=== PATIENT | male | born 1995 | race Asian ===

== ENCOUNTER 2022-07-28 22:51 | Inpatient (IN) ==
--- NOTE | 2022-07-28 23:12 | Emergency Department Note ---
Impression & Plan Chest pain ED Provider Note INFORMANT: Patient ED PROVIDER(S): Al Romano DO CHIEF COMPLAINT: Chest pain PLAN: Disposition: Admission Outpatient prescription management: none Discussion with: I spoke with the hospitalist, who will see the patient for admission/observation and further evaluation and consultation. MEDICAL DECISION MAKING: This is a 26-year-old male who presents to the ED with a chief complaint of chest pain. He states that it has been present for about 6 hours. He describes it as a burning sensation like as if it is a gastric issue. Denies any associated shortness of breath, fevers, cough. He also reports some epigastric abdominal pain. His symptoms are worse with laying flat. His vital signs reveal tachycardia and hypertension. Oxygen saturation 98% on room air. He is afebrile. Lung sounds are diminished on the left compared to the right. CBC did not show significant leukocytosis or anemia. D-dimer was negative therefore blood clot is unlikely. Chemistry panel was unremarkable for electrolyte abnormality. Troponin was negative for myocarditis or myocardial ischemia. Lipase was negative for pancreatitis. The patient will be seen by the hospitalist for further evaluation and care. Triage Nursing notes reviewed. Vital Signs: reviewed Prior /Outside records reviewed: none Differential diagnosis: Pneumothorax, myocarditis, myocardial infarction, gastroenteritis, pancreatitis Diagnostics, as interpreted by me: 12 lead ECG: Sinus tach 113. No ST elevation. No PVCs. Normal QTc. Cardiac Monitoring ordered: Sinus rhythm in the 90s. Medical decision rules: none Imaging studies: Chest x-ray: Large left-sided pneumothorax, chest x-ray #2: Chest tube in place with no obvious pneumothorax, CT scan of the chest: Chest tube in place no significant pneumothorax. Procedures: Chest tube left thorax: A Thora vent chest tube was placed left thoracic cavity. Betadine prep. Sterile technique. Sterile drape. 1% lidocaine with epinephrine, 15 cc. Thora vent was placed in the standard fashion. Patient tolerated well. Resolution of pneumothorax on chest x-ray #2 Critical care: I have personally spent 30 minutes of critical care time in the direct management of this patient. This includes bedside care, interpretation of diagnostic studies, and testing, discussion with consultants, patient, and family members, and other required patient management activities. This 30 minutes is in excess of all separately billable procedures. HPI: See MDM above. PAST MEDICAL HISTORY: See Below PAST SURGICAL HISTORY: See Below SOCIAL HISTORY: See Below HOME MEDICATIONS: See Below ALLERGIES: See Below VITALS: See Below PHYSICAL EXAMINATION: See MDM for positive findings otherwise unremarkable. CONSTITUTIONAL/VITAL SIGNS: Reviewed GENERAL:done as appropriate INTEGUMENTARY: done as appropriate HEAD: done as appropriate EYES: done as appropriate RESPIRATORY: done as appropriate CARDIOVASCULAR:done as appropriate GI/ABDOMEN:done as appropriate EXTREMITIES: done as appropriate NEUROLOGICAL: done as appropriate PSYCHIATRIC:done as appropriate MUSCULOSKELETAL:done as appropriate TRIAGE NURSING DOCUMENTATION REVIEWED. Past Med/Surg History Social History Smoking Status: Never smoker Feels Safe at Home: Yes Allergies Allergies Allergy/AdvReac Type Severity Reaction Status Date / Time No Known Allergies Allergy Verified 07/28/22 23:17 Home Meds Home Medications Medication Instructions Recorded Confirmed rosuvastatin 10 mg tablet 10 mg PO DAILY 07/29/22 07/29/22 Results & Data (ED) Vital Signs Vital Signs - 24 hr 07/28/22 22:56 07/28/22 22:59 07/28/22 23:05 Temperature 36.7 C Temperature Source Oral Pulse Rate 114 H 96 H Pulse Rate [Finger] 110 H Respiratory Rate 20 20 Respiratory Effort / Characteristics Non-Labored Spontaneous Respiratory Depth Normal Normal Blood Pressure 141/98 H Blood Pressure [Right Arm] 141/98 H Blood Pressure Mean 112 Blood Pressure Mean [Right Arm] 112 Blood Pressure Position Sitting Pulse Oximetry 96 98 Oxygen Delivery Method Room Air Room Air Sepsis Recent Fever Within 48 Hours No Sepsis New/Unexplained Change in Mental Status N/A Sepsis Action Taken by Nursing No Action Required 07/28/22 23:05 Temperature Temperature Source Pulse Rate Pulse Rate [Finger] Respiratory Rate Respiratory Effort / Characteristics Respiratory Depth Blood Pressure Blood Pressure [Right Arm] Blood Pressure Mean Blood Pressure Mean [Right Arm] Blood Pressure Position Pulse Oximetry 98 Oxygen Delivery Method Room Air Sepsis Recent Fever Within 48 Hours Sepsis New/Unexplained Change in Mental Status Sepsis Action Taken by Nursing Laboratory Data 07/28/22 23:05 07/28/22 23:05 Lab Results 07/28/22 07/28/22 07/28/22 Range/Units 23:05 23:05 23:05 WBC 11.19 H (4.8-10.8) K/ul RBC 5.38 (4.70-6.10) M/uL Hgb 14.9 (14.0-18.0) g/dl Hct 43.6 (42.0-52.0) % MCV 81.0 (80.0-100.0) fL MCH 27.7 (25.0-34.0) pg MCHC 34.2 (32.0-36.0) g/dL RDW Std Deviation 36.5 (36.4-46.3) fL RDW Coeff of Xiang 12.4 (11.5-14.5) % Plt Count 195 (130-400) K/uL MPV 13.0 H (9.4-12.4) fL Immature Gran % (Auto) 0.4 % Neut % (Auto) 76.0 % Lymph % (Auto) 17.2 % [place] % (Auto) 5.6 % Eos % (Auto) 0.5 % Baso % (Auto) 0.3 % Neut # (Auto) 8.51 H (1.40-6.50) K/uL Lymph # (Auto) 1.92 (1.2-3.4) K/uL [place] # (Auto) 0.63 H (0.11-0.59) K/uL Eos # (Auto) 0.06 (0-0.50) K/uL Baso # (Auto) 0.03 (0-0.2) K/uL Immature Gran # (Auto) 0.04 (0.01-0.20) K/uL PT 10.3 (9.0-12.0) Seconds INR 1.0 (0.9-1.1) APTT 28.5 (21.0-31.0) Seconds PTT Ratio 1.0 D-Dimer 190 (0-500) ug/L FEU Sodium 130 L (136-145) mmol/L Potassium 3.6 (3.5-5.1) mmol/L Chloride 93 L (98-107) mmol/L Carbon Dioxide 29 (21-32) mmol/L Anion Gap 8 (3-11) BUN 9 (6-23) mg/dl Creatinine 0.98 (0.6-1.4) mg/dl Est Cr Clr Drug Dosing 98.8 ml/min Est GFR ( Amer) 124.6 ml/min Est GFR (Non-Af Amer) 107.5 ml/min BUN/Creatinine Ratio 9.2 L (10-20) Glucose 112 H (70-99(Fasting)) mg/dl Calcium 10.0 (8.5-10.1) mg/dl Total Bilirubin 0.7 (0.2-1.0) mg/dl AST 25 (13-39) U/L ALT 33 (7-52) U/L Alkaline Phosphatase 78 (34-104) U/L Troponin I High Sens 4.0 (0-20) pg/ml Total Protein 8.8 H (6.0-8.3) gm/dl Albumin 5.0 (3.4-5.0) gm/dl Globulin 3.8 (2.5-4.0) gm/dl Albumin/Globulin Ratio 1.3 (0.9-2) Lipase 20 (11-82) U/L Administered Medications Discontinued Medications Lidocaine HCl (Lidocaine 1% Local 20 Ml Vial) Confirm Administered Dose 1 ml .ROUTE .STK-MED ONE Stop: 07/28/22 23:36 Last Admin: 07/28/22 23:53 Dose: 1 ml Documented By: ERIKA Morphine Sulfate (Morphine Sulfate 4 Mg/Ml 1 Ml Carp\Vial) 4 mg IV NOW STA Stop: 07/28/22 23:23 Last Admin: 07/28/22 23:24 Dose: 4 mg Documented By: KITTY Morphine Sulfate (Morphine Sulfate 4 Mg/Ml 1 Ml Carp\Vial) Confirm Administered Dose 4 mg .ROUTE .STK-MED ONE Stop: 07/28/22 23:24 Last Admin: 07/28/22 23:24 Dose: Not Given Documented By: KITTY Morphine Sulfate (Morphine Sulfate 4 Mg/Ml 1 Ml Carp\Vial) 4 mg IV NOW STA Stop: 07/28/22 23:56 Last Admin: 07/28/22 23:59 Dose: 4 mg Documented By: DOMO Discharge Plan Visit Data Chief Complaint: Cardiac Assessment Stated Complaint: Chest Discomfort, Nausea ED Provider: Al Romano Discharge Problem: Chest pain Forms Stand Alone Forms: My [employer] Prescriptions Prescriptions: No Action rosuvastatin 10 mg tablet 10 mg PO DAILY Referrals Referrals: PCP,NO [Physician] -
[2022-07-28 23:22] LABS: Basophils # (auto) 0.03 K/uL (0-0.2); Basophils % (auto) 0.3 %; Eosinophils # (auto) 0.06 K/uL (0-0.50); Eosinophils % (auto) 0.5 %; Hematocrit (blood only) 43.6 % (42.0-52.0); Hemoglobin 14.9 g/dl (14.0-18.0); Immature Granulocytes # (auto) 0.04 K/uL (0.01-0.20); Immature Granulocytes % (auto) 0.4 %; Lymphocytes # (auto) 1.92 K/uL (1.2-3.4); Lymphocytes % (auto) 17.2 %; Mean Corpuscular Hemoglobin 27.7 pg (25.0-34.0); Mean Corpuscular Hgb Conc 34.2 g/dL (32.0-36.0); Monocytes # (auto) 0.63 K/uL (0.11-0.59); Monocytes % (auto) 5.6 %; Neutrophils # (auto) 8.51 K/uL (1.40-6.50); Platelet Count 195 K/uL (130-400); RDW Coefficient of Variation 12.4 % (11.5-14.5); RDW Standard Deviation 36.5 fL (36.4-46.3); Red Blood Count 5.38 M/uL (4.70-6.10); White Blood Count 11.19 K/ul (4.8-10.8)
[2022-07-28] MEDS ORDERED: MoRPHine SULFATE 4 MG/ML 1 ML CARP\\VIAL IV STA ×2 (23:22→23:55)
[2022-07-28] MEDS ORDERED: MoRPHine SULFATE 4 MG/ML 1 ML CARP\\VIAL ONE (23:23)
[2022-07-28] MEDS ORDERED: LIDOCAINE 1% LOCAL 20 ML VIAL ONE (23:35)
[2022-07-28 23:37] LABS: Albumin Globulin Ratio 1.3 (0.9-2); BUN Creatinine Ratio 9.2 (10-20); Bilirubin,Total 0.7 mg/dl (0.2-1.0); Creatinine Clr Calc Pharmacy 98.8 ml/min; Est GFR (African American) 124.6 ml/min; Est GFR (Non-African American) 107.5 ml/min; Globulin 3.8 gm/dl (2.5-4.0); Potassium 3.6 mmol/L (3.5-5.1); Total Protein 8.8 gm/dl (6.0-8.3)
[2022-07-29 00:05] LABS: D Dimer 190 ug/L FEU (0-500); Partial Thromboplastin Time 28.5 Seconds (21.0-31.0); Prothrombin Time 10.3 Seconds (9.0-12.0)
--- NOTE | 2022-07-29 01:12 | XRay Report ---
Exam(s): FILM CXR 1 VIEW EXAM: XR Chest, 1 View CLINICAL HISTORY: Reason for exam: Chest pain, nonspecific. TECHNIQUE: Frontal view of the chest. COMPARISON: Subsequent chest x-ray and chest CT after left-sided chest tube placement available for comparison FINDINGS: Lungs: Collapsed left lung. Pleural space: Large left pneumothorax. Mediastinal shift to the right and lower left hemidiaphragm. Heart: Unremarkable. No cardiomegaly. Mediastinum: See above. Bones/joints: Unremarkable. IMPRESSION: 1. Large left pneumothorax. Mediastinal shift to the right and lower left hemidiaphragm. Worrisome for tension pneumothorax. Subsequent chest x-ray and chest CT status post left chest tube placement and decreased pneumothorax available for comparison at the time of interpretation. 2. Collapsed left lung. Electronically signed by: Adriano Campuzano M.D. 07/29/22 01:10 AM
--- NOTE | 2022-07-29 01:20 | CT Scan Report ---
Exam(s): CT CHEST Without Contrast EXAM: CT Chest Without Intravenous Contrast CLINICAL HISTORY: Reason for exam: pneumothorax. TECHNIQUE: Axial computed tomography images of the chest without intravenous contrast. Automated exposure control was utilized for the study. A dose lowering technique was utilized adhering to the principles of ALARA. COMPARISON: Chest x-rays dated 07/28/22 at 2305 hrs and 2344 hrs FINDINGS: Lungs: Focal atelectasis/airspace disease in the left upper lobe, mostly around the catheter tract. Scattered linear left lung atelectasis. Mild groundglass opacities throughout the left lung. Pleural space: See below. Heart: Unremarkable. No cardiomegaly. No significant pericardial effusion. No significant coronary artery calcifications. Bones/joints: Unremarkable. No acute fracture. No dislocation. Soft tissues: Unremarkable. Vasculature: Unremarkable. No thoracic aortic aneurysm. Lymph nodes: Unremarkable. No enlarged lymph nodes. Tubes, lines and devices: Interval placement of a chest tube in the left upper thorax. Small residual left pneumothorax. IMPRESSION: 1. Interval placement of a chest tube in the left upper thorax. Small residual left pneumothorax. 2. Focal atelectasis/airspace disease in the left upper lobe, mostly around the catheter tract. Scattered linear left lung atelectasis. 3. Mild groundglass opacities throughout the left lung. May represent reexpansion edema or infectious/inflammatory process. Communications: Verify Receipt Electronically signed by: Adriano Campuzano M.D. 07/29/22 01:19 AM
[2022-07-29] MEDS ORDERED: HYDROCODONE/ACETAMOPHEN 5/325MG TAB PO PRN (01:24)
--- NOTE | 2022-07-29 01:25 | History & Physical Report ---
Date of Service July 29, 2022 Assessment & Plan (1) Spontaneous pneumothorax: Plan: Continue chest tube as placed in ED Consult pulmonology to follow patient in a.m. Acetaminophen 650 mg p.o. every 6 hours as needed for mild pain or fever [place] 5/325, 1 every 6 hours as needed for moderate pain Morphine sulfate 2 mg IV every 4 hours as needed for severe pain (2) Hyponatremia: Plan: Repeat laboratories in a.m. Hold on IV fluids at this time History of Present Illness Chief Complaint: The patient presents to the emergency department with complaint of initial gassy feeling, then epigastric discomfort, then a sharp left-sided chest pain about 6 hours prior to arrival Primary Care Provider: Rust The patient is a 26-year-old male with past medical history significant for hypercholesterolemia, who presents to the emergency department with symptoms as noted above. Significant laboratories: WBC 11.19, sodium 130, glucose 112, total protein 8.8. The patient is COVID-19 negative. First chest x-ray showed a large left-sided pneumothorax. Second chest x-ray showed resolution of left-sided pneumothorax with placement of chest tube Allergies Allergy/AdvReac Type Severity Reaction Status Date / Time No Known Allergies Allergy Verified 07/28/22 23:17 Home Medications Medication Instructions Recorded Confirmed Type rosuvastatin 10 mg tablet 10 mg PO DAILY 07/29/22 07/29/22 History Past Med/Surg History Social History Smoking Status: Never smoker Hx Alcohol Use: No Hx Substance Use: No Preferred Language: Latvian Communication Ability: Effective Hospice Superintendent Required: No Beliefs That Will Affect Care: None Current Living Situation: Other Current Living Situation Comment: [employer] student w/ roommate Other Information That Helps Us Care for You: No Feels Safe at Home: Yes Safety Concerns: Feels Safe At This Time Review of Systems Review of Systems: The patient denies palpitations, cough, lower extremity swelling, sore throat, fevers, chills, sweats, weight change, fatigue, nausea, vomiting, diarrhea , constipation, abdominal pain, pelvic pain, blood in urine or stool, dysuria, urinary frequency or urgency, lightheadedness, dizziness, headache, memory loss, loss of consciousness, rash, abnormal bruising or bleeding, imbalance, focal or generalized weakness, numbness or tingling in arms or legs, generalized arthralgias or myalgias, back or neck pain, or night sweats. The review of systems is otherwise negative other than for that already noted above, and at least 10 systems have been reviewed. Physical Exam Physical Exam: The patient is awake, alert and oriented 3, well developed and well nourished, normocephalic and atraumatic, lying in bed and in no acute distress. HEENT--PERRL, EOMI, mucous membranes and oropharynx normal. Neck--supple. No JVD. No bruits. Thyroid normal, trachea midline, no adenopathy. Heart--normal S1 and S2. No murmurs, rubs or gallops. Lungs--clear bilaterally, no respiratory distress, no accessory muscle use. Left-sided chest tube in place Abdomen--normal bowel sounds and soft. Nontender. Nondistended, no hernias or masses, no organomegaly. Extremities--no cyanosis or clubbing. No edema. Dermatologic--normal skin turgor, normal color, no abnormal lymph nodes, no rash. Neurologic--cranial nerves II through XII grossly intact. Rheumatologic--normal range of motion. Psychiatric--normal affect. Results & Data Results & Data ([facility]) Vital Signs (Past 12 Hours) Vital Signs Temp Pulse Pulse Resp BP BP Pulse Ox 07/29/22 00:53 101 H 23 138/98 97 07/28/22 23:05 98 07/28/22 23:05 110 H 20 141/98 H 98 07/28/22 22:59 36.7 C 96 H 20 141/98 H 96 07/28/22 22:56 114 H O2 Del Method 07/29/22 00:53 Room Air 07/28/22 23:05 Room Air 07/28/22 23:05 Room Air 07/28/22 22:59 Room Air 07/28/22 22:56 Laboratory Results Laboratory Results WBC 11.19 K/ul (4.8-10.8) H 07/28/22 23:05 RBC 5.38 M/uL (4.70-6.10) 07/28/22 23:05 Hgb 14.9 g/dl (14.0-18.0) 07/28/22 23:05 Hct 43.6 % (42.0-52.0) 07/28/22 23: MCV 81.0 fL (80.0-100.0) 07/28/22 23: MCH 27.7 pg (25.0-34.0) 07/28/22 23: MCHC 34.2 g/dL (32.0-36.0) 07/28/22 23: RDW Std Deviation 36.5 fL (36.4-46.3) 07/28/22 23: RDW Coeff of Xiang 12.4 % (11.5-14.5) 07/28/22 23: Plt Count 195 K/uL (130-400) 07/28/22 23: MPV 13.0 fL (9.4-12.4) H 07/28/22 23: Immature Gran % (Auto) 0.4 % 07/28/22 23: Neut % (Auto) 76.0 % 07/28/22 23: Lymph % (Auto) 17.2 % 07/28/22 23: [place] % (Auto) 5.6 % 07/28/22 23:05 Eos % (Auto) 0.5 % 07/28/22 23:05 Baso % (Auto) 0.3 % 07/28/22 23:05 Neut # (Auto) 8.51 K/uL (1.40-6.50) H 07/28/22 23:05 Lymph # (Auto) 1.92 K/uL (1.2-3.4) 07/28/22 23:05 [place] # (Auto) 0.63 K/uL (0.11-0.59) H 07/28/22 23:05 Eos # (Auto) 0.06 K/uL (0-0.50) 07/28/22 23:05 Baso # (Auto) 0.03 K/uL (0-0.2) 07/28/22 23:05 Immature Gran # (Auto) 0.04 K/uL (0.01-0.20) 07/28/22 23: PT 10.3 Seconds (9.0-12.0) 07/28/22 23:05 INR 1.0 (0.9-1.1) 07/28/22 23:05 APTT 28.5 Seconds (21.0-31.0) 07/28/22 23:05 PTT Ratio 1.0 07/28/22 23:05 D-Dimer 190 ug/L FEU (0-500) 07/28/22 23: Sodium 130 mmol/L (136-145) L 07/28/22 23:05 Potassium 3.6 mmol/L (3.5-5.1) 07/28/22 23: Chloride 93 mmol/L (98-107) L 07/28/22 23: Carbon Dioxide 29 mmol/L (21-32) 07/28/22 23: Anion Gap 8 (3-11) 07/28/22 23: BUN 9 mg/dl (6-23) 07/28/22 23: Creatinine 0.98 mg/dl (0.6-1.4) 07/28/22 23: Est Cr Clr Drug Dosing 98.8 ml/min 07/28/22 23:05 Est GFR ( Amer) 124.6 ml/min 07/28/22 23: Est GFR (Non-Af Amer) 107.5 ml/min 07/28/22 23:05 BUN/Creatinine Ratio 9.2 (10-20) L 07/28/22 23: Glucose 112 mg/dl (70-99(Fasting)) H 07/28/22 23: Calcium 10.0 mg/dl (8.5-10.1) 07/28/22 23: Total Bilirubin 0.7 mg/dl (0.2-1.0) 07/28/22 23: AST 25 U/L (13-39) 07/28/22 23: ALT 33 U/L (7-52) 07/28/22 23:05 Alkaline Phosphatase 78 U/L (34-104) 07/28/22 23:05 Troponin I High Sens 4.0 pg/ml (0-20) 07/28/22 23: Total Protein 8.8 gm/dl (6.0-8.3) H 07/28/22 23:05 Albumin 5.0 gm/dl (3.4-5.0) 07/28/22 23: Globulin 3.8 gm/dl (2.5-4.0) 07/28/22 23:05 Albumin/Globulin Ratio 1.3 (0.9-2) 07/28/22 23:05 Lipase 20 U/L (11-82) 07/28/22 23:05 SARS-CoV-2, RNA, NAAT NEGATIVE (NEGATIVE) 07/29/22 00:52 Impressions Chest X-Ray 07/28/22 23:50 Exam(s): FILM CXR 1 VIEW EXAM: XR Chest, 1 View CLINICAL HISTORY: Reason for exam: s/p chest tube. TECHNIQUE: Frontal view of the chest. COMPARISON: Chest x-ray dated 07/28/22 at [address] at 0036 hours. FINDINGS: Lungs: See below. Pleural space: See below. Heart: Unremarkable. No cardiomegaly. Mediastinum: Unremarkable. No mediastinal shift, resolved since the prior. Bones/joints: Unremarkable. Tubes, lines and devices: Interval placement of chest tube in the left upper thorax. Interval reexpansion of the left lung and resolution of the large left pneumothorax. Small residual pneumothorax on the chest CT not visualized on this study. IMPRESSION: Interval placement of chest tube in the left upper thorax. Interval reexpansion of the left lung and resolution of the large left pneumothorax. Small residual pneumothorax on the chest CT not visualized on this study. Electronically signed by: Adriano Campuzano M.D. 07/29/22 01:[address] 07/29/22 00:07 CR Exam(s): CT CHEST Without Contrast EXAM: CT Chest Without Intravenous Contrast CLINICAL HISTORY: Reason for exam: pneumothorax. TECHNIQUE: Axial computed tomography images of the chest without intravenous contrast. Automated exposure control was utilized for the study. A dose lowering technique was utilized adhering to the principles of ALARA. COMPARISON: Chest x-rays dated 07/28/22 at 2305 hrs and 2344 hrs FINDINGS: Lungs: Focal atelectasis/airspace disease in the left upper lobe, mostly around the catheter tract. Scattered linear left lung atelectasis. Mild groundglass opacities throughout the left lung. Pleural space: See below. Heart: Unremarkable. No cardiomegaly. No significant pericardial effusion. No significant coronary artery calcifications. Bones/joints: Unremarkable. No acute fracture. No dislocation. Soft tissues: Unremarkable. Vasculature: Unremarkable. No thoracic aortic aneurysm. Lymph nodes: Unremarkable. No enlarged lymph nodes. Tubes, lines and devices: Interval placement of a chest tube in the left upper thorax. Small residual left pneumothorax. IMPRESSION: 1. Interval placement of a chest tube in the left upper thorax. Small residual left pneumothorax. 2. Focal atelectasis/airspace disease in the left upper lobe, mostly around the catheter tract. Scattered linear left lung atelectasis. 3. Mild groundglass opacities throughout the left lung. May represent reexpansion edema or infectious/inflammatory process. Communications: Verify Receipt Electronically signed by: Adriano Campuzano M.D. 07/29/22 01:19 AM Code Status & VTE Plan Code Status Full code VTE Prophylaxis Plan VTE Prophylaxis will be ordered: Yes PG Care Time/CCT Total # of Minutes Spent Total Time Spent with Patient: Total time spent is greater than 50% in coordination of care (as documented) at patient's floor/unit and/or counseling patient: Coding Level of Care Code 08499 INT INP/OBS CARE 2/55MIN Diagnoses Spontaneous pneumothorax J93.83 Hyponatremia E87.1
[2022-07-29] MEDS ORDERED: MoRPHine SULFATE 2 MG/ML CARP IV PRN (01:32)
[2022-07-29] MEDS ORDERED: ACETAMINOPHEN 325 MG TAB PO PRN (02:19)
[2022-07-29] MEDS ORDERED: ONDANSETRON INJ 2 MG/ML 2 ML VIAL IV PRN (02:19)
--- NOTE | 2022-07-29 08:35 | Hospitalist Progress Note ---
Date of Service July 29, 2022 Assessment & Plan (1) Spontaneous pneumothorax: Plan: 26 y/o male w/ PMHx of HLD who presents with complaint of initial gassy feeling, then epigastric discomfort, then a sharp left-sided chest pain afternoon of 34. Continue chest tube as placed in ED Consult pulmonology to follow patient in a.m. Acetaminophen 650 mg p.o. every 6 hours as needed for mild pain or fever Tamms 5/325, 1 every 6 hours as needed for moderate pain Morphine sulfate 2 mg IV every 4 hours as needed for severe pain (2) Hyponatremia: Plan: Repeat laboratories in a.m. Hold on IV fluids at this time Plan FEN/GI: ppx: code: full dispo: med tele Admission and Anticipated Discharge Date Admission Date: July 29, 2022 Review of Systems Review of Systems: All systems reviewed & are unremarkable except as noted in HPI & below Physical Exam Physical Exam: General: Grossly A&O. NAD. Cooperative. HEENT: Atraumatic, normocephalic. EOMI Pulm: CTAB. -wheezes, -rales, -rhonchi. No respiratory distress. Cardiac: RRR, -mrg. Radial pulses intact and symmetrical. Abdominal: Nontender, nondistended, soft. Results & Data Results & Data ([facility]) Vital Signs (Past 12 Hours) Vital Signs Temp Pulse Pulse Resp BP BP Pulse Ox 07/29/22 07:54 07/29/22 07:51 36.7 C 97 H 20 121/79 96 07/29/22 05:59 80 07/29/22 02:54 78 07/29/22 02:52 36.7 C 86 16 132/87 97 07/29/22 02:20 07/29/22 02:20 07/29/22 01:30 89 130/81 95 07/29/22 00:45 101 H 24 138/98 98 07/28/22 23:30 118 H 24 124/88 96 07/28/22 23:00 112 H 27 H 141/98 H 97 07/29/22 00:53 101 H 23 138/98 97 07/28/22 23:05 98 07/28/22 23:05 110 H 20 141/98 H 98 07/28/22 22:59 36.7 C 96 H 20 141/98 H 96 07/28/22 22:56 114 H O2 Del Method 07/29/22 07:54 Room Air 07/29/22 07:51 Room Air 07/29/22 05:59 07/29/22 02:54 07/29/22 02:52 Room Air 07/29/22 02:20 Room Air 07/29/22 02:20 Room Air 07/29/22 01:30 Room Air 07/29/22 00:45 Room Air 07/28/22 23:30 Room Air 07/28/22 23:00 Room Air 07/29/22 00:53 Room Air 07/28/22 23:05 Room Air 07/28/22 23:05 Room Air 07/28/22 22:59 Room Air 07/28/22 22:56 Resident Activity Tracking Resident Involvement: Resident Care Provided Care Provided: Adult Hospital Medicine
[2022-07-29] MEDS ORDERED: ROSUVASTATIN CALCIUM 10 MG TAB PO SCH (09:00)
--- NOTE | 2022-07-29 09:17 | Pulmonary Consultation ---
Date of Consultation July 29, 2022 Assessment & Plan (1) Spontaneous pneumothorax: (2) Chest pain: Plan Impression: 26-year-old male with spontaneous pneumothorax. CT scan demonstrates no significant parenchymal lung disease and the lung appears reinflated with placement of a Thora vent. No air leak identified this morning. Recommendations: 1. Spontaneous pneumothorax: This is the patient's initial event. It appears to have resolved with placement of a Thora vent. The Thora vent will be discontinued today and the patient can be dismissed from the hospital. Follow- up chest x-ray with his primary care provider in 1 to 2 weeks is recommended. 2. Would recommend the patient not undergo any heavy physical activity or changes in barometric pressure (commercial flight or scuba diving) for the next 4 weeks. 3. There is some airspace opacity around the tube insertion site. Unclear if the tube is intraparenchymal at this point time but there is no air leak identified. 4. As this is his initial event, do not think additional extensive work-up is required. We will monitor the patient conservatively. If he has a second spontaneous event, pleurodesis may be recommended. Above recommendations and plan were discussed with the patient. Questions were answered to the best my ability. He expressed understanding and is in agreement with plan as outlined History of Present Illness Attending Physician: Wale Weir, History of Present Illness Asked by hospitalist to assist in evaluation management this patient with pneumothorax. History is obtained from discussion with the patient as well as review the electronic medical record. The patient is a 26-year-old male who presented to the emergency room early this morning complaints of epigastric discomfort and sharp left-sided chest pain. He may have had some coughing antecedent to this. No prior illness. No prior history of pneumothorax. The patient had a chest x-ray which revealed a large pneumothorax. A Thora vent was placed by the emergency room and the patient was admitted to the hospitalist service. This a.m. the patient complains of some mild chest pain at the site of the insertion of the Thora vent. He is not coughing. There is no air leak identified on the Pleur-evac. The patient is a non-smoker. He denies any inhalational exposures including e-cigarettes marijuana or vaping. No family history of structural lung disease that he is aware of. No prior history of asthma. Denies any skin lesions. No history of kidney tumors. Allergies Allergy/AdvReac Type Severity Reaction Status Date / Time No Known Allergies Allergy Verified 07/28/22 23:17 Home Medications Medication Instructions Recorded Confirmed Type rosuvastatin 10 mg tablet 10 mg PO DAILY 07/29/22 07/29/22 History Patient History Social History Smoking Status: Never smoker Hx Alcohol Use: No Hx Substance Use: No Preferred Language: Romansh Communication Ability: Effective Fisher Swordfish Required: No Beliefs That Will Affect Care: None Current Living Situation: Other Current Living Situation Comment: [employer] student w/ roommate Other Information That Helps Us Care for You: No Feels Safe at Home: Yes Safety Concerns: Feels Safe At This Time Review of Systems Review of Systems: All systems reviewed & are unremarkable except as noted in Subjective Physical Exam Constitutional: WD/WN, vitals as above Neck: trachea midline, no thyromegaly Respiratory: normal respiratory effort, lungs clear to auscultation Cardiovascular: RRR, no murmur, no edema Gastrointestinal (Abdomen): normal bowel sounds, soft, nontender, no hepatosplenomegaly Musculoskeletal: Extremities: extremities normal to inspection Skin: no rashes, warm and dry Neurologic: Nonfocal exam Lymphatic: no cervical lymphadenopathy Results & Data Results & Data ([facility]) Vital Signs (Past 12 Hours) Vital Signs Temp Pulse Pulse Resp BP BP Pulse Ox 07/29/22 07:54 07/29/22 07:51 36.7 C 97 H 20 121/79 96 07/29/22 05:59 80 07/29/22 02:54 78 07/29/22 02:52 36.7 C 86 16 132/87 97 07/29/22 02:20 07/29/22 02:20 07/29/22 01:30 89 130/81 95 07/29/22 00:45 101 H 24 138/98 98 07/28/22 23:30 118 H 24 124/88 96 07/28/22 23:00 112 H 27 H 141/98 H 97 07/29/22 00:53 101 H 23 138/98 97 07/28/22 23:05 98 07/28/22 23:05 110 H 20 141/98 H 98 07/28/22 22:59 36.7 C 96 H 20 141/98 H 96 07/28/22 22:56 114 H O2 Del Method 07/29/22 07:54 Room Air 07/29/22 07:51 Room Air 07/29/22 05:59 07/29/22 02:54 07/29/22 02:52 Room Air 07/29/22 02:20 Room Air 07/29/22 02:20 Room Air 07/29/22 01:30 Room Air 07/29/22 00:45 Room Air 07/28/22 23:30 Room Air 07/28/22 23:00 Room Air 07/29/22 00:53 Room Air 07/28/22 23:05 Room Air 07/28/22 23:05 Room Air 07/28/22 22:59 Room Air 07/28/22 22:56 Critical Care Results & Data Vital Signs (Past 12 Hours) Vital Signs Temp Pulse Pulse Resp BP BP Pulse Ox 07/29/22 07:54 07/29/22 07:51 36.7 C 97 H 20 121/79 96 07/29/22 05:59 80 07/29/22 02:54 78 07/29/22 02:52 36.7 C 86 16 132/87 97 07/29/22 02:20 07/29/22 02:20 07/29/22 01:30 89 130/81 95 07/29/22 00:45 101 H 24 138/98 98 07/28/22 23:30 118 H 24 124/88 96 07/28/22 23:00 112 H 27 H 141/98 H 97 07/29/22 00:53 101 H 23 138/98 97 07/28/22 23:05 98 07/28/22 23:05 110 H 20 141/98 H 98 07/28/22 22:59 36.7 C 96 H 20 141/98 H 96 07/28/22 22:56 114 H O2 Del Method 07/29/22 07:54 Room Air 07/29/22 07:51 Room Air 07/29/22 05:59 07/29/22 02:54 07/29/22 02:52 Room Air 07/29/22 02:20 Room Air 07/29/22 02:20 Room Air 07/29/22 01:30 Room Air 07/29/22 00:45 Room Air 07/28/22 23:30 Room Air 03/04/23 23:00 Room Air 07/29/22 00:53 Room Air 07/28/22 23:05 Room Air 07/28/22 23:05 Room Air 07/28/22 22:59 Room Air 07/28/22 22:56 Lab & Micro Results (Past 24 Hours) RBC 5.38 M/uL (4.70-6.10) 07/28/22 WBC 11.19 K/ul (4.8-10.8) H 07/28/22 Hgb 14.9 g/dl (14.0-18.0) 07/28/22 Hct 43.6 % (42.0-52.0) 07/28/22 MCV 81.0 fL (80.0-100.0) 07/28/22 MCH 27.7 pg (25.0-34.0) 07/28/22 MCHC 34.2 g/dL (32.0-36.0) 07/28/22 RDW Standard Deviation 36.5 fL (36.4-46.3) 07/28/22 RDW Coefficient of Variation 12.4 % (11.5-14.5) 07/28/22 Plt Count 195 K/uL (130-400) 07/28/22 MPV 13.0 fL (9.4-12.4) H 07/28/22 Neutrophils (%) (Auto) 76.0 % 07/28/22 Lymphocytes (%) (Auto) 17.2 % 07/28/22 Monocytes # (Auto) 0.63 K/uL (0.11-0.59) H 07/28/22 Eosinophils # (Auto) 0.06 K/uL (0-0.50) 07/28/22 Immature Granulocyte % (Auto) 0.4 % 07/28/22 Neutrophils # (Auto) 8.51 K/uL (1.40-6.50) H 07/28/22 Lymphocytes # (Auto) 1.92 K/uL (1.2-3.4) 07/28/22 Monocytes # (Auto) 0.63 K/uL (0.11-0.59) H 07/28/22 Eosinophils # (Auto) 0.06 K/uL (0-0.50) 07/28/22 Basophils # (Auto) 0.03 K/uL (0-0.2) 07/28/22 Immature Granulocyte # (Auto) 0.04 K/uL (0.01-0.20) 3 Na 130 mmol/L (136-145) L 07/28/22 K 3.6 mmol/L (3.5-5.1) 07/28/22 Cl 93 mmol/L (98-107) L 07/28/22 CO2 29 mmol/L (21-32) 07/28/22 Anion Gap 8 (3-11) 07/28/22 BUN 9 mg/dl (6-23) 07/28/22 Creatinine 0.98 mg/dl (0.6-1.4) 07/28/22 Estimated GFR ( Amer) 124.6 ml/min 07/28/22 Estimated GFR (Non-Af Amer) 107.5 ml/min 07/28/22 BUN/Creatinine Ratio 9.2 (10-20) L 07/28/22 Glu 112 mg/dl (70-99(Fasting)) H 07/28/22 Ca 10.0 mg/dl (8.5-10.1) 07/28/22 Total Bilirubin 0.7 mg/dl (0.2-1.0) 07/28/22 AST 25 U/L (13-39) 07/28/22 ALT 33 U/L (7-52) 07/28/22 Alkaline Phosphatase 78 U/L (34-104) 07/28/22 TP 8.8 gm/dl (6.0-8.3) H 07/28/22 Albumin 5.0 gm/dl (3.4-5.0) 07/28/22 Globulin 3.8 gm/dl (2.5-4.0) 07/28/22 Albumin/Globulin Ratio 1.3 (0.9-2) 07/28/22 Calcium Level 10.0 mg/dl (8.5-10.1) 07/28/22 23:05 Prothromb Time International Ratio 1.0 (0.9-1.1) 07/28/22 23:0 5 Diagnostic Findings (Past 24 Hours) Chest X-Ray 07/28/22 23:00 Exam(s): FILM CXR 1 VIEW EXAM: XR Chest, 1 View CLINICAL HISTORY: Reason for exam: Chest pain, nonspecific. TECHNIQUE: Frontal view of the chest. COMPARISON: Subsequent chest x-ray and chest CT after left-sided chest tube placement available for comparison FINDINGS: Lungs: Collapsed left lung. Pleural space: Large left pneumothorax. Mediastinal shift to the right and lower left hemidiaphragm. Heart: Unremarkable. No cardiomegaly. Mediastinum: See above. Bones/joints: Unremarkable. IMPRESSION: 1. Large left pneumothorax. Mediastinal shift to the right and lower left hemidiaphragm. Worrisome for tension pneumothorax. Subsequent chest x-ray and chest CT status post left chest tube placement and decreased pneumothorax available for comparison at the time of interpretation. 2. Collapsed left lung. Electronically signed by: Adriano Campuzano M.D. 07/29/22 01:10 AM Chest X-Ray 07/28/22 23:50 Exam(s): FILM CXR 1 VIEW EXAM: XR Chest, 1 View CLINICAL HISTORY: Reason for exam: s/p chest tube. TECHNIQUE: Frontal view of the chest. COMPARISON: Chest x-ray dated 07/28/22 at [address] at 0036 hours. FINDINGS: Lungs: See below. Pleural space: See below. Heart: Unremarkable. No cardiomegaly. Mediastinum: Unremarkable. No mediastinal shift, resolved since the prior. Bones/joints: Unremarkable. Tubes, lines and devices: Interval placement of chest tube in the left upper thorax. Interval reexpansion of the left lung and resolution of the large left pneumothorax. Small residual pneumothorax on the chest CT not visualized on this study. IMPRESSION: Interval placement of chest tube in the left upper thorax. Interval reexpansion of the left lung and resolution of the large left pneumothorax. Small residual pneumothorax on the chest CT not visualized on this study. Electronically signed by: Adriano Campuzano M.D. 07/29/22 01:[address] 07/29/22 00:07 CR Exam(s): CT CHEST Without Contrast EXAM: CT Chest Without Intravenous Contrast CLINICAL HISTORY: Reason for exam: pneumothorax. TECHNIQUE: Axial computed tomography images of the chest without intravenous contrast. Automated exposure control was utilized for the study. A dose lowering technique was utilized adhering to the principles of ALARA. COMPARISON: Chest x-rays dated 07/28/22 at 2305 hrs and 2344 hrs FINDINGS: Lungs: Focal atelectasis/airspace disease in the left upper lobe, mostly around the catheter tract. Scattered linear left lung atelectasis. Mild groundglass opacities throughout the left lung. Pleural space: See below. Heart: Unremarkable. No cardiomegaly. No significant pericardial effusion. No significant coronary artery calcifications. Bones/joints: Unremarkable. No acute fracture. No dislocation. Soft tissues: Unremarkable. Vasculature: Unremarkable. No thoracic aortic aneurysm. Lymph nodes: Unremarkable. No enlarged lymph nodes. Tubes, lines and devices: Interval placement of a chest tube in the left upper thorax. Small residual left pneumothorax. IMPRESSION: 1. Interval placement of a chest tube in the left upper thorax. Small residual left pneumothorax. 2. Focal atelectasis/airspace disease in the left upper lobe, mostly around the catheter tract. Scattered linear left lung atelectasis. 3. Mild groundglass opacities throughout the left lung. May represent reexpansion edema or infectious/inflammatory process. Communications: Verify Receipt Electronically signed by: Adriano Campuzano M.D. 07/29/22 01:19 AM I & O Totals 24 Hours 07/28/22 07/29/22 07/30/22 06:59 06:59 06:59 Intake Total 0 / 0 Output Total 0 / 0 Balance 0 / 0 Cumulative 07/28/22 22:45 thru 07/29/22 06:24 Intake Total 0 Output Total 0 Balance 0 RT Ventilator Mngmt (Last Documented) Ventilator Ordered Settings Respiratory Rate 20 07/29/22 07:51 Ventilator - PT Measurements Respiratory Rate 20 PG Care Time/CCT Total # of Minutes Spent Total Time Spent with Patient: Total time spent is greater than 50% in coordination of care (as documented) at patient's floor/unit and/or counseling patient: Coding Level of Care Code 47287 IN/OBS CONSULT LVL 3,45M Diagnoses Spontaneous pneumothorax J93.83 Chest pain R07.9
--- NOTE | 2022-07-29 09:26 | Procedure Note ---
Procedure Note Date of Service July 29, 2022 Note Procedure: Removal of Thora vent on the left [employer] Rep[employer] Dr. Nassar Indication: Resolution of pneumothorax Anesthesia none Patient was placed in a upright seated position. On full expiration, the Thora vent was removed and an occlusive dressing was applied. The patient tolerated the procedure well without complication. Coding CPT Codes Pulmonary/Thoracic - Pulmonary and Thoracic: 24291 Remove lung catheter ([id number]) [facility] Procedure Codes (Charges) Pulmonary/Thoracic Procedure 1: Pulmonary and Thoracic: 87065 Remove lung catheter
[2022-07-29 10:22] LABS: Calcium 9.7 mg/dl (8.5-10.1); Creatinine Clr Calc Pharmacy 96.4 ml/min; Est GFR (African American) 121.6 ml/min; Est GFR (Non-African American) 104.9 ml/min; Magnesium 2.2 mg/dl (1.7-2.4); Potassium 4.3 mmol/L (3.5-5.1)
[2022-07-29 10:24] LABS: Hematocrit (blood only) 42.9 % (42.0-52.0); Hemoglobin 14.7 g/dl (14.0-18.0); Mean Corpuscular Hemoglobin 27.8 pg (25.0-34.0); Mean Corpuscular Hgb Conc 34.3 g/dL (32.0-36.0); Mean Corpuscular Volume 81.1 fL (80.0-100.0); Platelet Count 197 K/uL (130-400); RDW Coefficient of Variation 12.4 % (11.5-14.5); RDW Standard Deviation 36.1 fL (36.4-46.3); Red Blood Count 5.29 M/uL (4.70-6.10)
--- NOTE | 2022-07-29 12:17 | Discharge Summary ---
Date of Service July 29, 2022 Admission HPI Per Admitting Provider The patient is a 26-year-old male with past medical history significant for hypercholesterolemia, who presents to the emergency department with symptoms as noted above. Significant laboratories: WBC 11.19, sodium 130, glucose 112, total protein 8.8. The patient is COVID-19 negative. First chest x-ray showed a large left-sided pneumothorax. Second chest x-ray showed resolution of left-sided pneumothorax with placement of chest tube Admission Exam Per Admitting Provider The patient is awake, alert and oriented 3, well developed and well nourished, normocephalic and atraumatic, lying in bed and in no acute distress. HEENT--PERRL, EOMI, mucous membranes and oropharynx normal. Neck--supple. No JVD. No bruits. Thyroid normal, trachea midline, no adenopathy. Heart--normal S1 and S2. No murmurs, rubs or gallops. Lungs--clear bilaterally, no respiratory distress, no accessory muscle use. Left-sided chest tube in place Abdomen--normal bowel sounds and soft. Nontender. Nondistended, no hernias or masses, no organomegaly. Extremities--no cyanosis or clubbing. No edema. Dermatologic--normal skin turgor, normal color, no abnormal lymph nodes, no rash. Neurologic--cranial nerves II through XII grossly intact. Rheumatologic--normal range of motion. Psychiatric--normal affect. Principal Diagnosis left spontaneous pneumothorax Discharge Exam General: Grossly A&O. NAD. Cooperative. HEENT: Atraumatic, normocephalic. EOMI Pulm: CTAB. -wheezes, -rales, -rhonchi. No respiratory distress. Cardiac: RRR, -mrg. Integ: L upper chest wall w/ pressure dressing. Mild swelling of area w/o erythema/streaking. Discharge Data Allergies Allergy/AdvReac Type Severity Reaction Status Date / Time No Known Allergies Allergy Verified 07/28/22 23:17 Consultations 07/29/22 01:28 ED Decision to Admit Stat 07/29/22 06:58 Consult Pulmonology Routine Recommendations: 1. Spontaneous pneumothorax: This is the patient's initial event. It appears to have resolved with placement of a Thora vent. The Thora vent will be discontinued today and the patient can be dismissed from the hospital. Follow- up chest x-ray with his primary care provider in 1 to 2 weeks is recommended. 2. Would recommend the patient not undergo any heavy physical activity or changes in barometric pressure (commercial flight or scuba diving) for the next 4 weeks. 3. There is some airspace opacity around the tube insertion site. Unclear if the tube is intraparenchymal at this point time but there is no air leak identified. 4. As this is his initial event, do not think additional extensive work-up is required. We will monitor the patient conservatively. If he has a second spontaneous event, pleurodesis may be recommended. Ordered Studies Cardiac Enzymes 07/28/22 Range/Units 23:05 AST 25 (13-39) U/L Troponin I High Sens 4.0 (0-20) pg/ml Coagulation 07/28/22 Range/Units 23:05 PT 10.3 (9.0-12.0) Seconds APTT 28.5 (21.0-31.0) Seconds CBC 07/28/22 07/29/22 Range/Units 23:05 09:53 WBC 11.19 H 8.70 (4.8-10.8) K/ul RBC 5.38 5.29 (4.70-6.10) M/uL Hgb 14.9 14.7 (14.0-18.0) g/dl Hct 43.6 42.9 (42.0-52.0) % Plt Count 195 197 (130-400) K/uL Neut # (Auto) 8.51 H (1.40-6.50) K/uL Lymph # (Auto) 1.92 (1.2-3.4) K/uL [place] # (Auto) 0.63 H (0.11-0.59) K/uL Eos # (Auto) 0.06 (0-0.50) K/uL Baso # (Auto) 0.03 (0-0.2) K/uL Comprehensive Metabolic Panel 07/28/22 07/29/22 Range/Units 23:05 09:53 Sodium 130 L 134 L (136-145) mmol/L Potassium 3.6 4.3 (3.5-5.1) mmol/L Chloride 93 L 98 (98-107) mmol/L Carbon Dioxide 29 30 (21-32) mmol/L BUN 9 9 (6-23) mg/dl Creatinine 0.98 1.00 (0.6-1.4) mg/dl Glucose 112 H 124 H (70-99(Fasting)) mg/dl Calcium 10.0 9.7 (8.5-10.1) mg/dl AST 25 (13-39) U/L ALT 33 (7-52) U/L Alkaline Phosphatase 78 (34-104) U/L Total Protein 8.8 H (6.0-8.3) gm/dl Albumin 5.0 (3.4-5.0) gm/dl Intake and Output 07/28/22 07/29/22 07/29/22 22:59 06:59 14:59 Intake Total 0 / 0 Output Total 0 / 0 Balance 0 / 0 Intake: Oral 0 / 0 Output: Chest Tube Drainage 0 / 0 Left Upper Anterior Chest Pleur 0 / 0 -Evac Amanda Other: Weight 68.3 kg 67.7 kg Weight Measurement Method Built in [facility] Chest X-Ray 07/28/22 23:00 Exam(s): FILM CXR 1 VIEW EXAM: XR Chest, 1 View CLINICAL HISTORY: Reason for exam: Chest pain, nonspecific. TECHNIQUE: Frontal view of the chest. COMPARISON: Subsequent chest x-ray and chest CT after left-sided chest tube placement available for comparison FINDINGS: Lungs: Collapsed left lung. Pleural space: Large left pneumothorax. Mediastinal shift to the right and lower left hemidiaphragm. Heart: Unremarkable. No cardiomegaly. Mediastinum: See above. Bones/joints: Unremarkable. IMPRESSION: 1. Large left pneumothorax. Mediastinal shift to the right and lower left hemidiaphragm. Worrisome for tension pneumothorax. Subsequent chest x-ray and chest CT status post left chest tube placement and decreased pneumothorax available for comparison at the time of interpretation. 2. Collapsed left lung. Electronically signed by: Adriano Campuzano M.D. 07/29/22 01:10 AM Chest X-Ray 07/28/22 23:50 Exam(s): FILM CXR 1 VIEW EXAM: XR Chest, 1 View CLINICAL HISTORY: Reason for exam: s/p chest tube. TECHNIQUE: Frontal view of the chest. COMPARISON: Chest x-ray dated 07/28/22 at [address] at 0036 hours. FINDINGS: Lungs: See below. Pleural space: See below. Heart: Unremarkable. No cardiomegaly. Mediastinum: Unremarkable. No mediastinal shift, resolved since the prior. Bones/joints: Unremarkable. Tubes, lines and devices: Interval placement of chest tube in the left upper thorax. Interval reexpansion of the left lung and resolution of the large left pneumothorax. Small residual pneumothorax on the chest CT not visualized on this study. IMPRESSION: Interval placement of chest tube in the left upper thorax. Interval reexpansion of the left lung and resolution of the large left pneumothorax. Small residual pneumothorax on the chest CT not visualized on this study. Electronically signed by: Adriano Campuzano M.D. 07/29/22 01:[address] 07/29/22 00:07 CR Exam(s): CT CHEST Without Contrast EXAM: CT Chest Without Intravenous Contrast CLINICAL HISTORY: Reason for exam: pneumothorax. TECHNIQUE: Axial computed tomography images of the chest without intravenous contrast. Automated exposure control was utilized for the study. A dose lowering technique was utilized adhering to the principles of ALARA. COMPARISON: Chest x-rays dated 07/28/22 at 2305 hrs and 2344 hrs FINDINGS: Lungs: Focal atelectasis/airspace disease in the left upper lobe, mostly around the catheter tract. Scattered linear left lung atelectasis. Mild groundglass opacities throughout the left lung. Pleural space: See below. Heart: Unremarkable. No cardiomegaly. No significant pericardial effusion. No significant coronary artery calcifications. Bones/joints: Unremarkable. No acute fracture. No dislocation. Soft tissues: Unremarkable. Vasculature: Unremarkable. No thoracic aortic aneurysm. Lymph nodes: Unremarkable. No enlarged lymph nodes. Tubes, lines and devices: Interval placement of a chest tube in the left upper thorax. Small residual left pneumothorax. IMPRESSION: 1. Interval placement of a chest tube in the left upper thorax. Small residual left pneumothorax. 2. Focal atelectasis/airspace disease in the left upper lobe, mostly around the catheter tract. Scattered linear left lung atelectasis. 3. Mild groundglass opacities throughout the left lung. May represent reexpansion edema or infectious/inflammatory process. Communications: Verify Receipt Electronically signed by: Adriano Campuzano M.D. 07/29/22 01:19 AM Hospital Course (1) Spontaneous pneumothorax: 26 y/o male w/ PMHx of HLD who presents with complaint of initial gassy feeling, then epigastric discomfort, then a sharp left-sided chest pain afternoon of 07/28. This was the first occurrence of spontaneous pneumothorax. No risk factors (trauma, asthma, tobacco, bariatric pressure changes, family hx) were identified. Pulmonology was consulted and patient had Thora-Vent overnight. This was removed in the morning and patient was observed in the hospital during the day. Patient was provided pain control in the hospital. He will be sent w/ small course of oxycodone. Tylenol prn will be first-line. - PCP f/u w/ repeat cxr in 1-2 weeks - see pulmonology recs in the consultation section above. There was mention of "some airspace opacity around the tube insertion site. Unclear if the tube is intraparenchymal at this point time but there is no air leak identified." - monitor clinically for respiratory symptoms (e.g. for pneumonia) (2) Hyponatremia: Mild, improved w/o specific fluid treatment. 130 at admission, 134 on following day. 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 - repeat BMP in 1-2 weeks Plan Patient was full code this admission. Total Time Total Time Spent Total Time Spent (In Minutes): see attending documentation Discharge Plan Discharge Items Patient Disposition: Home - Self-Care Reason For Visit: LEFT SPONTANEOUS PNEUMOTHORAX Discharge Diagnosis: left spontaneous pneumothorax Activity: Per Instructions section Non-emergency contact: Primary Care Provider Call non-emergency contact if: you have any medication questions, your symptoms worsen and you have a fever Follow-up/Referrals: [facility] [Primary Care Provider] - (hospital discharge follow up with PCP within approximately 1 week) Diet: Regular Addtl Attending Provider Instructions: You were admitted to [facility] for a pneumothorax. A device called thoravent was used to treat this. Please follow up with your PCP within 1 week. A repeat chest xray and basic metabolic panel (Na of 134 at admission, improved to 134) are recommended in 1-2 weeks. Avoid heavy physical activity or changes in air pressure (plane, scuba diving) for 4 weeks. Avoid shower for 48 hours. Remove chest tube dressing in 48 hours. Avoid bath for 2 weeks. Avoid heavy physical activity or changes in barometric pressure (commercial flight or scuba diving) for the next 4 weeks. You can see more information about your visit by signing up for the patient portal. If any new or worsened symptoms (particularly shortness of breath or signs of wound infection), notify your PCP. If severe, visit the ED. Pending Studies at Discharge: No Stand-Alone Forms: My [facility], Smoking Cessation Medications and DC Order Prescriptions: New oxycodone 5 mg tablet 5 mg PO TID PRN (Reason: pain) Qty: 5 0RF Continued rosuvastatin 10 mg tablet 10 mg PO DAILY Discharge Orders: Discharge Order (Routine); Ordered 07/29/22 Ordered By: Johny Feliciano Admission Data Admit Date/Time: 07/29/22 01:23 Attending Provider: Wale Weir Admit Provider: Chuy Alex Primary Care Provider: [facility] Other Providers: Chuy Alex ; Kenny Nassar Other Interventions: Discharge Summary Assessment (RN) Last Done: 07/29/22 17:48 Supervising Physician Co-Signing Physician Notes I personally examined the patient and verified all berrios points of history and exam, discussed case, and agree with decision making with Dr Feliciano. Feeling better and would like to go home. Discussed outpatient follow-up and management. Answered all questions the best my ability. vitals noted nad heent mmm lungs cta b/l no r/r/w good effort equal air entry. no pallor or icterus Spontaneous pneumothoraxresolved with chest tube. Followed for several hours after chest tube removal, still reassuring exam. Safe/stable for home. Discussed avoidance of anything with significant changes in barometric pressure or trauma. Discussed the small but real chance this could happen again, and to follow symptoms closely if they did and seek care immediately. Otherwise as above Resident Activity Tracking Resident Involvement: Resident Care Provided Care Provided: Adult Hospital Medicine
--- NOTE | 2022-07-29 14:41 | Electrocardiogram Report ---
Test Reason : Blood Pressure : / mmHG Vent. Rate : 113 BPM Atrial Rate : 113 BPM P-R Int : 170 ms QRS Dur : 084 ms QT Int : 284 ms P-R-T Axes : 076 078 070 degrees QTc Int : 389 ms Sinus tachycardia Borderline ECG No previous ECGs available Confirmed by Ward Lorenzana ([id number]) on 07/29/2022 2:40:35 PM Referred By: REFERRED SELF Confirmed By:Ward Lorenzana
--- NOTE | 2022-07-29 19:54 | Billing Data ---
Date of Service July 29, 2022 Coding Level of Care Code 97965 IN/OBS DISCH 30 MIN/LESS
== END 2022-07-29 18:41 | disposition home or self-care (01) | DRG 200 ==
LOC: ED 22:51 → 2N 07-29 01:23 → SUATTDRO 07-29 01:23 → 2N 07-29 01:55

== ENCOUNTER 2022-08-02 11:46 | Inpatient (IN) ==
[2022-08-02] MEDS ORDERED: MoRPHine SULFATE 4 MG/ML 1 ML CARP\\VIAL IV STA ×2 (12:18→12:56)
[2022-08-02] MEDS ORDERED: ONDANSETRON INJ 2 MG/ML 2 ML VIAL IV STA (12:18)
[2022-08-02] MEDS ORDERED: SODIUM CHLORIDE 0.9% 500 ML IV ONE (12:18)
--- NOTE | 2022-08-02 12:20 | Emergency Department Note ---
Impression & Plan Recurrent pneumothorax after chest tube removed, Chest pain ED Provider Note NAME: RAMILA MERCHANT AGE: 26 SEX: M : 1995 ARRIVES VIA: Walk-In INFORMANT: Patient ED PROVIDER(S): Wale Becerril DO CHIEF COMPLAINT: chest pain HPI: Patient is a 26-year-old male who presents the ER for chest pain located on the left side of his chest. He notes that over the weekend he was here for an spontaneous pneumothorax. He has never had 1 before. He admits to pain which has been present since Saturday after being discharged. The pain has not worsened or changed. He admits to some shortness of breath with it. He has significant pain when he pushes on his chest wall or with any movement in regards to twisting, turning, or bending. PAST MEDICAL HISTORY:See Below PAST SURGICAL HISTORY:See Below FAMILY HISTORY:See Below SOCIAL HISTORY:See Below HOME MEDICATIONS:See Below ALLERGIES:See Below VITALS:See Below PHYSICAL EXAMINATION: GENERAL: Sitting up in bed, alert, well appearing, mild distress EYE EXAM: normal conjunctiva. PERRL and EOM's grossly intact. OROPHARYNX: mucous membranes are moist NECK: supple, no nuchal rigidity, no adenopathy, non-tender LUNGS: Diminished on the left with significant tenderness over the left upper chest wall. Normal chest wall mechanics HEART: no murmurs, S1 normal and S2 normal ABDOMEN: abdomen soft, non-tender, normo-active bowel sounds, no masses, no re bound or guarding. UPPER EXTREMITIES: upper extremities are grossly normal. LOWER EXTREMITIES: No pitting edema. NEURO EXAM: Normal sensorium, cranial nerves II-XII grossly intact, normal speech, no gross weakness of arms, no gross weakness of legs. No drift. Finger to nose intact. Gross sensation intact. MEDICAL DECISION MAKING: Patient is a 26-year-old male who presents the ER for left-sided chest pain. He was recently admitted and discharged following pneumothorax. Saturday he started having pain which has been persistent since then. He was referred in [facility]. Chest x-ray was obtained and showed a moderate pneumothorax. Patient was not hypoxic tachypneic. Discussed with pulmonology and they are gracious enough to see the patient and place a chest tube at bedside. Patient was admitted to the hospitalist for further work-up. He was given IV morphine while in the ER. Patient was placed on a nonrebreather on the ER. Triage Nursing notes reviewed. Limited review of prior medical records performed Vital Signs: reviewed and remarkable for HTN Differential diagnosis: Cardiac ischemia, aortic dissection, pulmonary embolism, pneumothorax, pneumonia, pericarditis, myocarditis, esophageal rupture, GERD, cholecystitis, pancreatitis, musculoskeletal, as well as other pathologies. ER treatment provided: See below Diagnostics interpreted by me include EKG and cardiac monitoring as listed below: -Cardiac Monitoring: An order was placed for continuous cardiac monitoring. The monitor shows a rate of 101 with sinus rhythm. -ECG: Sinus tachycardia rate of 104 Normal axis No PVCs QTc 389 -Laboratory studies:Interpreted by me as stated above in MDM and shown below. Imaging studies: Xrays: As interpreted by me: portable AP upright 1 view of the chest shows a 50% left-sided pneumothorax CTs show: none Consultation(s): discussed with Dr. Simmons from pulmonology who evaluate the patient at bedside and placed chest tube Discussed with Everardo Thomas for further evaluation management and treatment for the PTX. Procedures:none Critical Care: I have personally spent 32 minutes of critical care time in the direct management of this patient. This includes bedside care, interpretation of diagnostic studies, and testing, discussion with consultants, patient, and family members, and other required patient management activities. This 32 minutes is in excess of all separately billable procedures. Past Med/Surg History Medical History (Updated 08/02/22 @ 17:37 by aWle Becerril DO) Abnormal CT scan, chest Social History Smoking Status: Never smoker Second Hand Exposure: No; Do You Dip or Chew Tobacco: No; Tobacco Cessation Education Requested by Patient: No Hx Alcohol Use: No Hx Substance Use: No Preferred Language: Sri Lankan Communication Ability: Effective Alterations Sewer Required: No Beliefs That Will Affect Care: None Current Living Situation: Other Current Living Situation Comment: [facility] WITH [facility] Other Information That Helps Us Care for You: No Feels Safe at Home: Yes Safety Concerns: Feels Safe At This Time Assistive Devices: None Allergies Allergies Allergy/AdvReac Type Severity Reaction Status Date / Time No Known Allergies Allergy Verified 07/28/22 23:17 Home Meds Home Medications Medication Instructions Recorded Confirmed rosuvastatin 10 mg tablet 10 mg PO DAILY 07/29/22 07/29/22 Previous Rx's Medication Instructions Recorded oxycodone 5 mg tablet 5 mg PO TID PRN pain #5 tabs 07/29/22 Results & Data (ED) Vital Signs Vital Signs - 24 hr 08/02/22 11:49 08/02/22 11:57 08/02/22 11:57 Temperature 36.9 C Temperature Source Temporal Artery Scan Pulse Rate 106 H 103 H Pulse Rate from SpO2 Sensor Pulse Rhythm Regular Respiratory Rate 20 23 Respiratory Effort / Characteristics Non-Labored Non-Labored Spontaneous Respiratory Depth Normal Respiratory Pattern Regular Blood Pressure 139/81 Blood Pressure Mean 100 Pulse Oximetry 97 98 Oxygen Delivery Method Room Air Room Air Room Air Oxygen Flow Rate 0 Sepsis Recent Fever Within 48 Hours No Sepsis New/Unexplained Change in Mental Status No Sepsis Action Taken by Nursing No Action Required 08/02/22 12:27 08/02/22 12:33 08/02/22 12:33 Temperature Temperature Source Pulse Rate 106 H 100 H Pulse Rate from SpO2 Sensor 100 H Pulse Rhythm Respiratory Rate 23 16 Respiratory Effort / Characteristics Non-Labored Spontaneous Respiratory Depth Normal Respiratory Pattern Regular Blood Pressure Blood Pressure Mean Pulse Oximetry 100 100 Oxygen Delivery Method Non-rebreather Oxygen Flow Rate 15 Sepsis Recent Fever Within 48 Hours Sepsis New/Unexplained Change in Mental Status Sepsis Action Taken by Nursing 08/02/22 12:35 08/02/22 12:38 08/02/22 12:38 Temperature Temperature Source Pulse Rate 107 H Pulse Rate from SpO2 Sensor 109 H 108 H Pulse Rhythm Respiratory Rate 20 Respiratory Effort / Characteristics Respiratory Depth Respiratory Pattern Blood Pressure 150/109 H Blood Pressure Mean 122 Pulse Oximetry 100 100 Oxygen Delivery Method Non-rebreather Oxygen Flow Rate 15 Sepsis Recent Fever Within 48 Hours Sepsis New/Unexplained Change in Mental Status Sepsis Action Taken by Nursing 08/02/22 12:40 08/02/22 12:40 08/02/22 12:45 Temperature Temperature Source Pulse Rate 106 H Pulse Rate from SpO2 Sensor 105 H Pulse Rhythm Respiratory Rate 22 Respiratory Effort / Characteristics Respiratory Depth Respiratory Pattern Blood Pressure 150/105 H 151/104 H Blood Pressure Mean 120 119 Pulse Oximetry 100 Oxygen Delivery Method Nasal Cannula Oxygen Flow Rate 4 Sepsis Recent Fever Within 48 Hours Sepsis New/Unexplained Change in Mental Status Sepsis Action Taken by Nursing 08/02/22 12:45 08/02/22 12:50 08/02/22 12:50 Temperature Temperature Source Pulse Rate 106 H 99 H Pulse Rate from SpO2 Sensor 107 H 102 H Pulse Rhythm Respiratory Rate 25 H 25 H Respiratory Effort / Characteristics Respiratory Depth Respiratory Pattern Blood Pressure 157/106 H Blood Pressure Mean 123 Pulse Oximetry 99 99 Oxygen Delivery Method Oxygen Flow Rate Sepsis Recent Fever Within 48 Hours Sepsis New/Unexplained Change in Mental Status Sepsis Action Taken by Nursing 08/02/22 12:55 08/02/22 12:55 08/02/22 12:58 Temperature Temperature Source Pulse Rate 115 H 102 H Pulse Rate from SpO2 Sensor 118 H 102 H Pulse Rhythm Respiratory Rate 43 H 24 Respiratory Effort / Characteristics Respiratory Depth Respiratory Pattern Blood Pressure 154/117 H Blood Pressure Mean 129 Pulse Oximetry 98 100 Oxygen Delivery Method Oxygen Flow Rate Sepsis Recent Fever Within 48 Hours Sepsis New/Unexplained Change in Mental Status Sepsis Action Taken by Nursing 08/02/22 12:58 08/02/22 13:00 08/02/22 13:00 Temperature Temperature Source Pulse Rate 114 H Pulse Rate from SpO2 Sensor 119 H Pulse Rhythm Respiratory Rate 22 Respiratory Effort / Characteristics Respiratory Depth Respiratory Pattern Blood Pressure 154/107 H 156/106 H Blood Pressure Mean 122 122 Pulse Oximetry 100 Oxygen Delivery Method Oxygen Flow Rate Sepsis Recent Fever Within 48 Hours Sepsis New/Unexplained Change in Mental Status Sepsis Action Taken by Nursing 08/02/22 13:05 08/02/22 13:05 08/02/22 13:10 Temperature Temperature Source Pulse Rate 113 H Pulse Rate from SpO2 Sensor 112 H Pulse Rhythm Respiratory Rate 21 Respiratory Effort / Characteristics Respiratory Depth Respiratory Pattern Blood Pressure 153/102 H 162/110 H Blood Pressure Mean 119 127 Pulse Oximetry 100 Oxygen Delivery Method Oxygen Flow Rate Sepsis Recent Fever Within 48 Hours Sepsis New/Unexplained Change in Mental Status Sepsis Action Taken by Nursing 08/02/22 13:10 08/02/22 13:15 08/02/22 13:15 Temperature Temperature Source Pulse Rate 108 H 107 H Pulse Rate from SpO2 Sensor 107 H 107 H Pulse Rhythm Respiratory Rate 24 23 Respiratory Effort / Characteristics Respiratory Depth Respiratory Pattern Blood Pressure 154/109 H Blood Pressure Mean 124 Pulse Oximetry 100 99 Oxygen Delivery Method Nasal Cannula Oxygen Flow Rate 2 Sepsis Recent Fever Within 48 Hours Sepsis New/Unexplained Change in Mental Status Sepsis Action Taken by Nursing 08/02/22 13:20 08/02/22 13:20 Temperature Temperature Source Pulse Rate 99 H Pulse Rate from SpO2 Sensor 102 H Pulse Rhythm Respiratory Rate 19 Respiratory Effort / Characteristics Respiratory Depth Respiratory Pattern Blood Pressure 151/103 H Blood Pressure Mean 119 Pulse Oximetry 99 Oxygen Delivery Method Oxygen Flow Rate Sepsis Recent Fever Within 48 Hours Sepsis New/Unexplained Change in Mental Status Sepsis Action Taken by Nursing Laboratory Data 08/02/22 12:11 08/02/22 12:15 Lab Results 08/02/22 08/02/22 08/02/22 Range/Units 12:11 12:15 12:15 WBC 7.43 (4.8-10.8) K/ul RBC 5.55 (4.70-6.10) M/uL Hgb 15.2 (14.0-18.0) g/dl Hct 45.0 (42.0-52.0) % MCV 81.1 (80.0-100.0) fL MCH 27.4 (25.0-34.0) pg MCHC 33.8 (32.0-36.0) g/dL RDW Std Deviation 36.1 L (36.4-46.3) fL RDW Coeff of Xiang 12.3 (11.5-14.5) % Plt Count 234 (130-400) K/uL MPV 13.5 H (9.4-12.4) fL Immature Gran % (Auto) 0.5 % Neut % (Auto) 68.2 % Lymph % (Auto) 21.5 % [place] % (Auto) 7.8 % Eos % (Auto) 1.7 % Baso % (Auto) 0.3 % Neut # (Auto) 5.06 (1.40-6.50) K/uL Lymph # (Auto) 1.60 (1.2-3.4) K/uL [place] # (Auto) 0.58 (0.11-0.59) K/uL Eos # (Auto) 0.13 (0-0.50) K/uL Baso # (Auto) 0.02 (0-0.2) K/uL Immature Gran # (Auto) 0.04 (0.01-0.20) K/uL Sodium 137 (136-145) mmol/L Potassium 4.0 (3.5-5.1) mmol/L Chloride 102 (98-107) mmol/L Carbon Dioxide 31 (21-32) mmol/L Anion Gap 4 (3-11) BUN 9 (6-23) mg/dl Creatinine 1.01 (0.6-1.4) mg/dl Est Cr Clr Drug Dosing 101.8 ml/min Est GFR ( Amer) 120.1 ml/min Est GFR (Non-Af Amer) 103.6 ml/min BUN/Creatinine Ratio 8.9 L (10-20) Glucose 106 H (70-99(Fasting)) mg/dl Calcium 9.8 (8.5-10.1) mg/dl Total Bilirubin 0.6 (0.2-1.0) mg/dl AST 22 (13-39) U/L ALT 29 (7-52) U/L Alkaline Phosphatase 84 (34-104) U/L Troponin I High Sens < 2.3 (0-20) pg/ml Total Protein 8.0 (6.0-8.3) gm/dl Albumin 4.5 (3.4-5.0) gm/dl Globulin 3.5 (2.5-4.0) gm/dl Albumin/Globulin Ratio 1.3 (0.9-2) Procalcitonin < 0.05 (0-0.5) ng/ml SARS-CoV-2, RNA, NAAT (NEGATIVE) 08/02/22 Range/Units 12:23 WBC (4.8-10.8) K/ul RBC (4.70-6.10) M/uL Hgb (14.0-18.0) g/dl Hct (42.0-52.0) % MCV (80.0-100.0) fL MCH (25.0-34.0) pg MCHC (32.0-36.0) g/dL RDW Std Deviation (36.4-46.3) fL RDW Coeff of Xiang (11.5-14.5) % Plt Count (130-400) K/uL MPV (9.4-12.4) fL Immature Gran % (Auto) % Neut % (Auto) % Lymph % (Auto) % [place] % (Auto) % Eos % (Auto) % Baso % (Auto) % Neut # (Auto) (1.40-6.50) K/uL Lymph # (Auto) (1.2-3.4) K/uL [place] # (Auto) (0.11-0.59) K/uL Eos # (Auto) (0-0.50) K/uL Baso # (Auto) (0-0.2) K/uL Immature Gran # (Auto) (0.01-0.20) K/uL Sodium (136-145) mmol/L Potassium (3.5-5.1) mmol/L Chloride (98-107) mmol/L Carbon Dioxide (21-32) mmol/L Anion Gap (3-11) BUN (6-23) mg/dl Creatinine (0.6-1.4) mg/dl Est Cr Clr Drug Dosing ml/min Est GFR ( Amer) ml/min Est GFR (Non-Af Amer) ml/min BUN/Creatinine Ratio (10-20) Glucose (70-99(Fasting)) mg/dl Calcium (8.5-10.1) mg/dl Total Bilirubin (0.2-1.0) mg/dl AST (13-39) U/L ALT (7-52) U/L Alkaline Phosphatase (34-104) U/L Troponin I High Sens (0-20) pg/ml Total Protein (6.0-8.3) gm/dl Albumin (3.4-5.0) gm/dl Globulin (2.5-4.0) gm/dl Albumin/Globulin Ratio (0.9-2) Procalcitonin (0-0.5) ng/ml SARS-CoV-2, RNA, NAAT NEGATIVE (NEGATIVE) Administered Medications Morphine Sulfate (Morphine Sulfate 2 Mg/Ml Carp) 2 mg IV Q4H PRN PRN Reason: Pain Stop: 08/16/22 15:35 Last Admin: 08/02/22 16:56 Dose: 2 mg Documented By: VEGA Discontinued Medications Sodium Chloride (Nss) 500 mls @ 999 mls/hr IV .Q31M ONE Stop: 08/02/22 12:48 Last Infusion: 08/02/22 13:03 Dose: 0 mls/hr Documented By: Admin: 08/02/22 12:32 Dose: 999 mls/hr Documented By: LAUREN Morphine Sulfate (Morphine Sulfate 4 Mg/Ml 1 Ml Carp\Vial) 4 mg IV NOW STA Stop: 08/02/22 12:19 Last Admin: 08/02/22 12:36 Dose: 4 mg Documented By: LAUREN Morphine Sulfate (Morphine Sulfate 4 Mg/Ml 1 Ml Carp\Vial) 4 mg IV NOW STA Stop: 08/02/22 12:57 Last Admin: 08/02/22 12:58 Dose: 4 mg Documented By: AMY Ondansetron HCl (Ondansetron Inj 2 Mg/Ml 2 Ml Vial) 4 mg IV NOW STA Stop: 08/02/22 12:19 Last Admin: 08/02/22 12:34 Dose: 4 mg Documented By: LAUREN Imaging Data Radiologist's Impression: Chest X-Ray 08/02/22 11:57 SINGLE VIEW CHEST CLINICAL HISTORY: Atypical chest pain. FINDINGS: An AP, portable, upright chest radiograph is compared to study dated 07/28/2022 and correlated with chest CT dated 07/29/2022. The cardiomediastinal silhouette is unremarkable. The left-sided chest tube has been removed. There is a moderate to large recurrent left upper lobe pneumothorax. Atelectasis/consoli dation is seen at the left lung base. The right lung appears clear. The trachea is midline. The bony thorax is grossly intact. IMPRESSION: 1. A left-sided chest tube has been removed. There is a moderate to large recurrent left-sided pneumothorax. 2. Atelectasis/consolidation is seen at the left lung base. ACT 112: Negative or not required by law. Electronically signed by: Alexandre Ko M.D. 08/02/2022 12:28 PM Chest X-Ray 08/02/22 12:57 SINGLE VIEW CHEST CLINICAL HISTORY: Chest tube placement. FINDINGS: An AP, portable, upright chest radiograph is compared to study performed earlier the same day 08/02/2022 and correlated with chest CT dated 07/29/2022. The cardiomediastinal silhouette is unremarkable. A left-sided chest tube has been placed. There is only trace residual left apical pneumothorax. Airspace consolidation is seen in the left mid to lower lung. The right appears clear. There is no right-sided pneumothorax. The bony thorax is grossly intact. IMPRESSION: 1. A left-sided chest tube has been placed. There is only trace residual pneumothorax. 2. Airspace consolidation in the left lower lung could represent persistent atelectasis, a pneumonitis, or possibly reexpansion edema. Clinical correlation will be required. ACT 112: Negative or not required by law. Electronically signed by: Alexandre Ko M.D. 08/02/2022 1:15 PM Discharge Plan Visit Data Chief Complaint: Respiratory Problems Stated Complaint: SOB,L LUNG COLLAPSED ED Provider: Wale Becerril Discharge Problem: Recurrent pneumothorax after chest tube removed, Chest pain Patient Disposition: Admitted As Inpatient Discharge Instructions Interventions: ED Discharge Assessment Last Done: 08/02/22 13:46
--- NOTE | 2022-08-02 12:29 | XRay Report ---
SINGLE VIEW CHEST CLINICAL HISTORY: Atypical chest pain. FINDINGS: An AP, portable, upright chest radiograph is compared to study dated 07/28/2022 and correlate d with chest CT dated 07/29/2022. The cardiomediastinal silhouette is unremarkable. The left-sided ches t tube has been removed. There is a moderate to large recurrent left upper lobe pneumothorax. Atelect asis/consolidation is seen at the left lung base. The right lung appears clear. The trachea is midlin e. The bony thorax is grossly intact. IMPRESSION: 1. A left-sided chest tube has been removed. There is a moderate to large recurrent left-sided pneumo thorax. 2. Atelectasis/consolidation is seen at the left lung base. ACT 112: Negative or not required by law. Electronically signed by: Alexandre Ko M.D. 08/02/2022 12:28 PM
--- NOTE | 2022-08-02 12:53 | Electrocardiogram Report ---
Test Reason : Blood Pressure : / mmHG Vent. Rate : 104 BPM Atrial Rate : 104 BPM P-R Int : 144 ms QRS Dur : 086 ms QT Int : 296 ms P-R-T Axes : 069 059 028 degrees QTc Int : 389 ms Sinus tachycardia Otherwise normal ECG When compared with ECG of 28-JUL-2022 22:58, No significant change was found Confirmed by Ward Lorenzana ([id number]) on 08/02/2022 12:52:45 PM Referred By: Confirmed By:Ward Lorenzana
[2022-08-02 13:10] LABS: Basophils # (auto) 0.02 K/uL (0-0.2); Basophils % (auto) 0.3 %; Eosinophils # (auto) 0.13 K/uL (0-0.50); Eosinophils % (auto) 1.7 %; Hemoglobin 15.2 g/dl (14.0-18.0); Immature Granulocytes # (auto) 0.04 K/uL (0.01-0.20); Immature Granulocytes % (auto) 0.5 %; Lymphocytes % (auto) 21.5 %; Mean Corpuscular Hemoglobin 27.4 pg (25.0-34.0); Mean Corpuscular Hgb Conc 33.8 g/dL (32.0-36.0); Mean Corpuscular Volume 81.1 fL (80.0-100.0); Mean Platelet Volume 13.5 fL (9.4-12.4); Monocytes # (auto) 0.58 K/uL (0.11-0.59); Monocytes % (auto) 7.8 %; Neutrophils # (auto) 5.06 K/uL (1.40-6.50); Neutrophils % (auto) 68.2 %; Platelet Count 234 K/uL (130-400); RDW Coefficient of Variation 12.3 % (11.5-14.5); RDW Standard Deviation 36.1 fL (36.4-46.3); Red Blood Count 5.55 M/uL (4.70-6.10); White Blood Count 7.43 K/ul (4.8-10.8)
--- NOTE | 2022-08-02 13:17 | XRay Report ---
SINGLE VIEW CHEST CLINICAL HISTORY: Chest tube placement. FINDINGS: An AP, portable, upright chest radiograph is compared to study performed earlier the same d ay 08/02/2022 and correlated with chest CT dated 07/29/2022. The cardiomediastinal silhouette is unremark able. A left-sided chest tube has been placed. There is only trace residual left apical pneumothorax. Airspace consolidation is seen in the left mid to lower lung. The right appears clear. There is no r ight-sided pneumothorax. The bony thorax is grossly intact. IMPRESSION: 1. A left-sided chest tube has been placed. There is only trace residual pneumothorax. 2. Airspace consolidation in the left lower lung could represent persistent atelectasis, a pneumoniti s, or possibly reexpansion edema. Clinical correlation will be required. ACT 112: Negative or not required by law. Electronically signed by: Alexandre Ko M.D. 08/02/2022 1:15 PM
--- NOTE | 2022-08-02 13:20 | Procedure Note ---
Procedure Note Date of Service August 02, 2022 Note 8 Nigerian pneumothorax catheter on the left in the second intercostal space, midclavicular line Procedure: Pneumothorax catheter Indication: Pneumothorax Anesthesia: 10 mL lidocaine 1% Written consent was obtained and placed on the chart. Timeout was done prior to the procedure. Prior to procedure, chest x-ray films were reviewed by myself and demonstrated a large left upper lobe pneumothorax. A time-out was completed verifying correct patient, procedure, site, positioning, and implant(s) or special equipment if applicable. Utilizing bedside ultrasound, chest wall was evaluated for location for optimal chest tube placement. Location between the second and third ribs were marked on the skin using gentle pressure. The left sided chest wall was prepped with chlorhexidine and draped in the typical sterile fashion. 10 mL of 1% Lidocaine without epinephrine was used to anesthetize the skin down to the dorsal surface of the second rib. Air return confirmed entry into the pleural space. Lidocaine was injected into the pleural space for increased anesthetization. Introducer needle on syringe was inserted in perpendicular fashion taking care to ride just above the dorsal surface of the second rib. Entry into the pleural space was heralded by air return into the syringe while under gentle aspiration. Scalpel was used to make small incision of the superficial tissue, parallel to the direction of the rib anatomy. 8 Nigerian catheter over needle apparatus was advanced into the second intercostal space towards the pleural cavity. Drain was immediately connected to pre-prepared DALE pleur-evac system. Pigtail was sutured securely in place and sterile dressing was applied. Chest tube was placed to -20 cmH2O suction. Patient did have significant pain and tenderness during the procedure. 4 mg of IV morphine was given with improvement of symptoms. Initially a large grade 4 air leak was noted and then within a matter of 1 to 2 minutes, the air leak resolved. Repeat chest x-ray demonstrates resolution of the pneumothorax. There is a left midlung infiltrate present. Blood Loss: Minimal Complications: Pain and tenderness around the site of the catheter insertion. Ultrasound was used to assist in insertion of the catheter. Coding CPT Codes Pulmonary/Thoracic - Pulmonary and Thoracic: 59524 Tube thoracostomy ([id number]) [facility] [place] Procedure Codes (Charges) Pulmonary/Thoracic Procedure 1: Pulmonary and Thoracic: 51624 Tube thoracostomy
--- NOTE | 2022-08-02 13:22 | Pulmonary Consultation ---
Date of Consultation August 02, 2022 Assessment & Plan (1) Recurrent pneumothorax after chest tube removed: (2) Chest pain: (3) Abnormal CT scan, chest: Plan Patient with recurrent pneumothorax which was initially spontaneous last week. The Thora vent that he previously had was placed intraparenchymally. I suspect the infiltrate seen on the left is likely pulmonary contusion and hemorrhage from the previously placed Thora vent. I placed a small bore chest tube with near resolution of the pneumothorax. We will obtain a CT chest to evaluate for abscess or bronchopulmonary fistula in light of the infiltrate noted and the previously malplaced Thora vent. Continue chest tube to suction at -20 Pain control per primary team. Patient may ultimately require VATS for definitive management of the spontaneous pneumothorax. Patient and friend at bedside in agreement with plan. Thank you for allowing us to participate in the care of the patient. Please call questions. We will continue to follow. Discussed with ER service, hospitalist service and bedside RN. 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 Patient notes his chest pain became excruciating today and he came for an evaluation. I was also able to obtain history from his physical chemistry professor who is available at bedside. He stated that he was coughing prior to this event. No fever or sputum. Notably, the patient was recently admitted on 07/29/2022 for tension pneumothorax on the left and had a Thora vent placed at that time. The Thora vent appeared to be intraparenchymal, but the pneumothorax essentially resolved. Chest tube was removed and the patient was discharged. The patient has significant tenderness in the left chest wall. There appeared to be granulation tissue formed over the previous site of the Thora vent. Patient denies any tobacco abuse or vaping. He denies any heavy lifting or traveling. He denies any scuba diving. Allergies Allergy/AdvReac Type Severity Reaction Status Date / Time No Known Allergies Allergy Verified 07/28/22 23:17 Home Medications Medication Instructions Recorded Confirmed Type oxycodone 5 mg tablet 5 mg PO TID PRN pain #5 tabs 07/29/22 Rx rosuvastatin 10 mg tablet 10 mg PO DAILY 07/29/22 07/29/22 History Patient History Medical History (Updated 08/02/22 @ 14:06 by Chalo Montoya MD) Abnormal CT scan, chest Social History Smoking Status: Never smoker Hx Alcohol Use: No Hx Substance Use: No Preferred Language: Eritrean Communication Ability: Effective Clerical Transcriber Required: No Beliefs That Will Affect Care: None Current Living Situation: Other Current Living Situation Comment: [facility] student w/ roommate Feels Safe at Home: Yes Review of Systems Review of Systems: All systems reviewed & are unremarkable except as noted in HPI & below Physical Exam Physical Exam: Constitutional: 26-year-old male in moderate distress. Eyes: Pupils are equal round and reactive to light. Conjunctivae are normal. Anicteric sclera. Ears nose, mouth and throat: Mallampati class 1. Normal posterior oropharynx. Uvula is midline. Neck: Trachea is midline. Visual inspection is normal. Respiratory: Minimal breath sounds on the left. Tachypneic. Cardiovascular: Regular rate and rhythm. No murmurs. No edema. Gastrointestinal: Normal bowel sounds, soft, nontender and nondistended. No hepatosplenomegaly noted. Musculoskeletal: Severe tenderness of the left upper portion of his anterior chest wall. No crepitus. Skin: No rashes, warm dry and intact. Neurologic: No obvious focal neurological deficits seen. Psychiatric: Alert and oriented x3 with a euthymic affect. Results & Data Results & Data ([facility]) Vital Signs (Past 12 Hours) Vital Signs Temp Pulse Resp BP Pulse Ox O2 Del Method O2 Flow Rate 08/02/22 12:33 106 H 08/02/22 12:27 23 100 Non-rebreather 15 08/02/22 11:57 Room Air 08/02/22 11:57 103 H 23 98 Room Air 0 08/02/22 11:49 36.9 C 106 H 20 139/81 97 Room Air PG Care Time/CCT Total # of Minutes Spent Total Time Spent with Patient: Total time spent is greater than 50% in coordination of care (as documented) at patient's floor/unit and/or counseling patient: Coding Level of Care Code 20097 IN/OBS CONSULT LVL 4,60M Diagnoses Recurrent pneumothorax after chest tube removed J95.811 Chest pain R07.[address] scan, chest R93.89
[2022-08-02 13:24] LABS: Alanine Aminotransferase 29 U/L (7-52); Albumin Globulin Ratio 1.3 (0.9-2); Albumin Level 4.5 gm/dl (3.4-5.0); Alkaline Phosphatase 84 U/L (34-104); Anion Gap 4 (3-11); Aspartate Aminotransferase 22 U/L (13-39); BUN Creatinine Ratio 8.9 (10-20); Bilirubin,Total 0.6 mg/dl (0.2-1.0); Blood Urea Nitrogen 9 mg/dl (6-23); Calcium 9.8 mg/dl (8.5-10.1); Carbon Dioxide 31 mmol/L (21-32); Chloride 102 mmol/L (98-107); Creatinine Clr Calc Pharmacy 101.8 ml/min; Est GFR (African American) 120.1 ml/min; Est GFR (Non-African American) 103.6 ml/min; Globulin 3.5 gm/dl (2.5-4.0); Glucose 106 mg/dl (70-99(Fasting)); Sodium 137 mmol/L (136-145)
--- NOTE | 2022-08-02 13:27 | History & Physical Report ---
Date of Service August 02, 2022 Assessment & Plan (1) Recurrent pneumothorax after chest tube removed: Plan: Appreciate pulmonology management with pneumothorax catheter inserted in the ER 08/02/2022 - continued management per pulmonology Pain control with acetaminophen 1st line, morphine 2nd line. Plan VTE prophylaxis - low risk Diet - regular Disposition - admit to PCU Admission and Anticipated Discharge Date Admission Date: August 02, 2022 History of Present Illness Chief Complaint: Chest pain Primary Care Provider: [facility] Maria Fernanda Fontana is a 26-year-old male who presents to the ER due to shortness of breath. He was recently diagnosed with spontaneous pneumothorax and admitted to [facility] on July 29. He reports recurrent chest pain and shortness of breath the following day. Severity 9/10 today therefore he went to [facility] and obtained a chest x-ray and he was advised to go back to the emergency room due to recurrent pneumothorax. Pneumothorax catheter already placed by pulmonology when seen in the ER. He reports current pain 3/10. Very tired and easily falling back to sleep. He was referred to medicine for admission and ongoing management of pneumothorax. Allergies Allergy/AdvReac Type Severity Reaction Status Date / Time No Known Allergies Allergy Verified 07/28/22 23:17 Home Medications Medication Instructions Recorded Confirmed Type oxycodone 5 mg tablet 5 mg PO TID PRN pain #5 tabs 07/29/22 Rx rosuvastatin 10 mg tablet 10 mg PO DAILY 07/29/22 07/29/22 History Past Med/Surg History Medical History (Updated 08/02/22 @ 17:37 by Wale Becerril DO) Abnormal CT scan, chest Social History Smoking Status: Never smoker Second Hand Exposure: No; Do You Dip or Chew Tobacco: No; Tobacco Cessation Education Requested by Patient: No Hx Alcohol Use: No Hx Substance Use: No Preferred Language: Korean Communication Ability: Effective Host/Hostess Ground Required: No Beliefs That Will Affect Care: None Current Living Situation: Other Current Living Situation Comment: [employer] WITH ROOMMATE Other Information That Helps Us Care for You: No Feels Safe at Home: Yes Safety Concerns: Feels Safe At This Time Assistive Devices: None Review of Systems Review of Systems: All systems reviewed & are unremarkable except as noted in HPI & below Physical Exam Constitutional: well developed; no acute distress Eyes: + conjunctival abnormality (bilateral injected) and PERRL ENMT: external ear and nose normal, oropharynx normal Respiratory: + abnormal respiratory effort (reduced effort) Auscultation: + diminished lung sounds (left > right); no crackles and no wheezes Cardiovascular: RRR, no murmur, no edema Gastrointestinal (Abdomen): normal bowel sounds, soft, nontender, no hepatosplenomegaly Musculoskeletal: no cyanosis or clubbing, extremities motor strength 5/5 Skin: no rashes, warm and dry Neurologic: awake; not confused Psychiatric: A+Ox3, euthymic affect Results & Data Results & Data ([facility]) Vital Signs (Past 12 Hours) Vital Signs Temp Pulse Resp BP Pulse Ox O2 Del Method O2 Flow Rate 08/02/22 12:33 106 H 08/02/22 12:27 23 100 Non-rebreather 15 08/02/22 11:57 Room Air 08/02/22 11:57 103 H 23 98 Room Air 0 08/02/22 11:49 36.9 C 106 H 20 139/81 97 Room Air Laboratory Results Abnormal lab results 08/02/22 08/02/22 Range/Units 12:11 12:15 RDW Std Deviation 36.1 L (36.4-46.3) fL MPV 13.5 H (9.4-12.4) fL BUN/Creatinine Ratio 8.9 L (10-20) Glucose 106 H (70-99(Fasting)) mg/dl Diagnostic Findings SINGLE VIEW CHEST CLINICAL HISTORY: Atypical chest pain. FINDINGS: An AP, portable, upright chest radiograph is compared to study dated 07/28/2022 and correlated with chest CT dated 07/29/2022. The cardiomediastinal silhouette is unremarkable. The left-sided chest tube has been removed. There is a moderate to large recurrent left upper lobe pneumothorax. Atelectasis/consolidation is seen at the left lung base. The right lung appears clear. The trachea is midline. The bony thorax is grossly intact. IMPRESSION: 1. A left-sided chest tube has been removed. There is a moderate to large recurrent left-sided pneumothorax. 2. Atelectasis/consolidation is seen at the left lung base. SINGLE VIEW CHEST CLINICAL HISTORY: Chest tube placement. FINDINGS: An AP, portable, upright chest radiograph is compared to study performed earlier the same day 08/02/2022 and correlated with chest CT dated 07/29/2022. The cardiomediastinal silhouette is unremarkable. A left-sided chest tube has been placed. There is only trace residual left apical pneumothorax. Airspace consolidation is seen in the left mid to lower lung. The right appears clear. There is no right-sided pneumothorax. The bony thorax is grossly intact. IMPRESSION: 1. A left-sided chest tube has been placed. There is only trace residual pneumothorax. 2. Airspace consolidation in the left lower lung could represent persistent atelectasis, a pneumonitis, or possibly reexpansion edema. Clinical correlation will be required. Medications Administered ER medications given: Morphine 4 mg IV Ondansetron 4 mg IV Normal saline 500 mL bolus Morphine 4 mg IV ECG Indication: chest pain Rate (beats per minute): 104 Rhythm: sinus tachycardia Findings: no acute ischemic change Comparison ECG Date: from (July 28, 2022) Change: no significant change Code Status & VTE Plan Code Status Full VTE Prophylaxis Plan VTE Prophylaxis will be ordered: No PG Care Time/CCT Total # of Minutes Spent Total Time Spent with Patient: Total time spent is greater than 50% in coordination of care (as documented) at patient's floor/unit and/or counseling patient: Coding Level of Care Code 78709 INT INP/OBS CARE 2/55MIN Diagnoses Recurrent pneumothorax after chest tube removed J95.811
[2022-08-02 13:30] LABS: Troponin I High Sensitivity < 2.3 pg/ml (0-20)
[2022-08-02] MEDS ORDERED: ACETAMINOPHEN 325 MG TAB PO PRN (15:01)
--- NOTE | 2022-08-02 15:14 | CT Scan Report ---
CT chest diagnostic wo con CLINICAL HISTORY: eval for abscess or bpf TECHNIQUE: Multidetector row helical CT of the chest was performed. Coronal and sagittal reformations were obtained. Automated dose lowering techniques and/or adjustment according to patient size were u tilized for this exam. CT DOSE: 322.64 mGy.cm Comparison: Comparison is made to CT chest 07/29/2022 FINDINGS: Lungs and pleura: A left chest tube terminates in the thorax. There is a trace pneumothorax. Atelecta sis is noted in the left midlung without evidence of abscess. Heart and pericardium: Heart size is normal. No pericardial effusion. Vessels: Unremarkable. Mediastinum and pipo: Unremarkable. Chest wall and lower neck: Unremarkable. Abdomen: Unremarkable. Bones: Unremarkable. A bone island is seen in the right fourth rib. IMPRESSION: Satisfactory position of chest tube. Trace residual pneumothorax is seen with atelectasis but no evid ence of pulmonary abscess. ACT 112: Negative or not required by law. Electronically signed by: Thanh Driver M.D. 08/02/2022 3:12 PM
[2022-08-02] MEDS: MoRPHine SULFATE 2 MG/ML CARP IV PRN ×2 (16:56→21:03)
[2022-08-02] MEDS: AMPICILLIN/SULBACTAM SOD 3,000 MG in 0.9 % SODIUM CHLORIDE 100 ML IV SCH ×2 (17:45→20:28)
[2022-08-03] MEDS: MoRPHine SULFATE 2 MG/ML CARP IV PRN ×2 (00:57→08:36)
[2022-08-03] MEDS: AMPICILLIN/SULBACTAM SOD 3,000 MG in 0.9 % SODIUM CHLORIDE 100 ML IV SCH ×4 (04:15→21:39)
--- NOTE | 2022-08-03 07:25 | XRay Report ---
XR chest 1V portable HISTORY: 26 years-old Male Ptx follow-up study in a patient with a pneumothorax COMPARISON: Chest radiograph 08/02/2022 at 7:28 PM, chest CT 08/02/2022 TECHNIQUE: AP view of the chest FINDINGS: A left-sided chest tube is again noted projecting over the lateral left midlung. Mild persistent line ar left midlung consolidation. No definite residual pneumothorax identified. Heart is normal in size. No large pleural effusion or overt pulmonary edema. The bones appear grossly intact. Decreased subcu taneous emphysema of the left chest wall. IMPRESSION: A left-sided chest tube is again noted with mild persistent linear consolidation of the l eft midlung. No definite pneumothorax identified. ACT 112: Negative or not required by law. The above report was generated using voice recognition software. It may contain grammatical, syntax o r spelling errors. Electronically signed by: Yrn Thurston M.D. 08/03/2022 7:24 AM
--- NOTE | 2022-08-03 09:08 | XRay Report ---
XR chest 1V portable CLINICAL HISTORY: chest tube on waterseal TECHNIQUE: Single frontal radiograph of the chest was obtained. Comparison: Comparison is made to chest radiograph 08/02/2022 FINDINGS: Left chest tube is again seen. The cardiomediastinal silhouette is stable. Lungs are underinflated bu t clear. Interval enlargement of a left apical pneumothorax which now measures 21 mm. IMPRESSION: Pneumothorax has enlarged from prior exam now measuring 21 mm. A left chest tube is again noted in pl rima. ACT 112: Negative or not required by law. Electronically signed by: Thanh Driver M.D. 08/03/2022 9:05 AM
[2022-08-03] MEDS ORDERED: oxyCODONE HCL IR 5 MG TAB (IMMEDIATE RELEASE) PO PRN (09:33)
[2022-08-03] MEDS ORDERED: KETOROLAC TROMETHAMINE 15 MG/ML VIAL IV PRN ×2 (09:33→09:35)
--- NOTE | 2022-08-03 09:33 | Pulmonology Progress Note ---
Date of Service August 03, 2022 Assessment & Plan (1) Recurrent pneumothorax after chest tube removed: (2) Chest pain: (3) Abnormal CT scan, chest: Plan Patient with recurrent pneumothorax which was initially spontaneous last week. The Thora vent that he previously had was placed intraparenchymally. I suspect the infiltrate seen on the left is likely pulmonary contusion and hemorrhage from the previously placed Thora vent. Small bore chest tube placed 08/02/2022. Attempt waterseal today and repeat a chest x-ray in 2 hours at 11:30 AM. Will reevaluate after repeat chest x-ray. CT chest from 08/02/2022 reviewed with evidence of pulmonary contusion, atelectasis and possible pneumonia. Currently on Unasyn. Toradol as needed for pain. Patient may ultimately require VATS for definitive management of the spontaneous pneumothorax. Thank you for allowing us to participate in the care of the patient. Please call questions. We will continue to follow. Admission and Anticipated Discharge Date Admission Date: August 02, 2022 Subjective Patient notes pain is a bit better today. Placed the chest tube to waterseal overnight, but his pneumothorax expanded. He remained asymptomatic. Patient was placed back on suction yesterday evening. This morning chest x-ray reveals no evidence of pneumothorax and -20 cm suction. He still remains fatigued and has tenderness around the insertion site. Review of Systems Review of Systems: All systems reviewed & are unremarkable except as noted in HPI & below Physical Exam Physical Exam: Constitutional: 26-year-old male in moderate distress. Eyes: Pupils are equal round and reactive to light. Conjunctivae are normal. Anicteric sclera. Ears nose, mouth and throat: Mallampati class 1. Normal posterior oropharynx. Uvula is midline. Neck: Trachea is midline. Visual inspection is normal. Respiratory: Minimal breath sounds on the left. Tachypneic. Cardiovascular: Regular rate and rhythm. No murmurs. No edema. Gastrointestinal: Normal bowel sounds, soft, nontender and nondistended. No hepatosplenomegaly noted. Musculoskeletal: Severe tenderness of the left upper portion of his anterior chest wall. No crepitus. Skin: No rashes, warm dry and intact. Neurologic: No obvious focal neurological deficits seen. Psychiatric: Alert and oriented x3 with a euthymic affect. Results & Data Results & Data ([facility]) Vital Signs (Past 12 Hours) Vital Signs Temp Pulse Pulse Resp BP BP Pulse Ox 08/03/22 07:30 36.9 C 75 16 124/85 97 08/03/22 03:15 36.5 C 73 18 112/74 95 08/02/22 23:01 36.8 C 73 16 129/85 100 08/02/22 23:00 96 H O2 Del Method O2 Flow Rate 08/03/22 07:30 Room Air 08/03/22 03:15 Nasal Cannula 2 08/02/22 23:01 Nasal Cannula 2 08/02/22 23:00 PG Care Time/CCT Total # of Minutes Spent Total Time Spent with Patient: Total time spent is greater than 50% in coordination of care (as documented) at patient's floor/unit and/or counseling patient: Coding Level of Care Code 84216 SUB INP/OBS CARE 2/35MIN Diagnoses Recurrent pneumothorax after chest tube removed J95.811 Chest pain R07.[address] scan, chest R93.89
[2022-08-03] MEDS ORDERED: ACETAMINOPHEN 325 MG TAB PO PRN (09:35)
[2022-08-03] MEDS: DOCUSATE SODIUM/SENNA 50/8.6MG TAB PO SCH (10:40)
--- NOTE | 2022-08-03 10:56 | XRay Report ---
XR chest 1V portable HISTORY: 26 years-old Male follow up waterseal left-sided chest tube COMPARISON: Chest radiograph of same day at 6:45 AM TECHNIQUE: AP view of the chest FINDINGS: A left-sided chest tube is again noted projecting over the lateral left midlung. Mild persistent line ar left midlung consolidation. Tiny left apical pneumothorax, pleural separation of 3 mm. Heart is no rmal in size. No large pleural effusion or overt pulmonary edema. The bones appear grossly intact. De creased subcutaneous emphysema of the left chest wall. IMPRESSION: Stable positioning of the left-sided chest tube with tiny left apical pneumothorax. ACT 112: Negative or not required by law. The above report was generated using voice recognition software. It may contain grammatical, syntax o r spelling errors. Electronically signed by: Yrn Thurston M.D. 08/03/2022 10:55 AM
--- NOTE | 2022-08-03 13:12 | Hospitalist Progress Note ---
Date of Service August 03, 2022 Assessment & Plan (1) Recurrent pneumothorax after chest tube removed: Plan: Diagnosed earlier with spontaneous pneumothorax, which recurred after removal of chest tube Appreciate pulmonology management with pneumothorax catheter inserted in the ER 08/02/2022 Chest x ray shows some persistent small pneumothorax, chest tube in situ may need VATS procedure Pain control adequate (2) LLL pneumonia: Plan: Evidence of lobar PNA on x ray Currently on Unasyn cultutres pending Plan VTE prophylaxis - low risk Diet - regular cont hospitalization Admission and Anticipated Discharge Date Admission Date: August 02, 2022 Subjective patient seen and examined, says he obtains some relief with pain medications Review of Systems Review of Systems: All systems reviewed are negative, apart from the ones contained in the history. Physical Exam Physical Exam: The patient is awake, alert and oriented 3, well developed and well nourished, normocephalic and atraumatic, lying in bed and in no acute distress. HEENT--PERRL, EOMI, mucous membranes and oropharynx mildly dry Neck--supple. No JVD. No bruits. Thyroid normal, trachea midline, no adenopathy. Heart--normal S1 and S2. No murmurs, rubs or gallops. Lungs--reduced air entry on auscultation, chest tube in situ Abdomen--normal bowel sounds and soft. Mild epigastric and left sided abdominal pain Extremities--no cyanosis or clubbing. No edema. Dermatologic--normal skin turgor, normal color, no abnormal lymph nodes, no rash. Neurologic--cranial nerves II through XII grossly intact. Rheumatologic--normal range of motion. Psychiatric--normal affect. Results & Data Results & Data ([facility]) Vital Signs (Past 12 Hours) Vital Signs Temp Pulse Pulse Resp BP BP Pulse Ox 08/03/22 11:56 98.2 F 77 18 109/73 97 08/03/22 07:00 72 08/03/22 09:00 08/03/22 07:30 98.4 F 75 16 124/85 97 08/03/22 03:15 97.7 F 73 18 112/74 95 O2 Del Method O2 Flow Rate 08/03/22 11:56 Room Air 08/03/22 07:00 08/03/22 09:00 Room Air 08/03/22 07:30 Room Air 08/03/22 03:15 Nasal Cannula 2 PG Care Time/CCT Total # of Minutes Spent Total Time Spent with Patient: Total time spent is greater than 50% in coordination of care (as documented) at patient's floor/unit and/or counseling patient: Coding Level of Care Code 43954 SUB INP/OBS CARE 2/35MIN Diagnoses Recurrent pneumothorax after chest tube removed J95.811 LLL pneumonia J18.9 Time Spent (min) 35
--- NOTE | 2022-08-03 15:40 | XRay Report ---
SINGLE VIEW CHEST CLINICAL HISTORY: Worsening chest pain. Pneumothorax. FINDINGS: An AP, portable, upright chest radiograph is compared to study dated 08/03/2022 and correlat ed with chest CT dated 08/02/2022. The cardiomediastinal silhouette is unremarkable. A left-sided chest tube is unchanged in position. Trace residual left apical pneumothorax is unchanged, as are air spac e opacities in left mid lung. No large pleural effusion is identified. No right-sided pneumothorax is seen. The bony thorax is grossly intact. IMPRESSION: 1. A left-sided chest tube is unchanged in position and a trace left apical pneumothorax is similar t o today's earlier examinations. 2. Airspace opacities in the left midlung are unchanged. ACT 112: Negative or not required by law. Electronically signed by: Alexandre Ko M.D. 08/03/2022 3:38 PM
[2022-08-04] MEDS: AMPICILLIN/SULBACTAM SOD 3,000 MG in 0.9 % SODIUM CHLORIDE 100 ML IV SCH ×2 (03:08→08:42)
[2022-08-04 06:16] LABS: Hematocrit (blood only) 42.8 % (42.0-52.0); Hemoglobin 14.6 g/dl (14.0-18.0); Mean Corpuscular Hemoglobin 27.8 pg (25.0-34.0); Mean Corpuscular Hgb Conc 34.1 g/dL (32.0-36.0); Mean Corpuscular Volume 81.5 fL (80.0-100.0); Mean Platelet Volume 13.5 fL (9.4-12.4); Platelet Count 215 K/uL (130-400); RDW Coefficient of Variation 12.4 % (11.5-14.5); RDW Standard Deviation 36.5 fL (36.4-46.3); Red Blood Count 5.25 M/uL (4.70-6.10); White Blood Count 6.86 K/ul (4.8-10.8)
[2022-08-04 06:30] LABS: BUN Creatinine Ratio 10.4 (10-20); Calcium 9.4 mg/dl (8.5-10.1); Creatinine Clr Calc Pharmacy 107.1 ml/min; Est GFR (African American) 127.7 ml/min; Est GFR (Non-African American) 110.2 ml/min
[2022-08-04] MEDS: DOCUSATE SODIUM/SENNA 50/8.6MG TAB PO SCH (08:41)
[2022-08-04] MEDS ORDERED: bisacodyL 5 MG TABEC PO ONE (09:14)
--- NOTE | 2022-08-04 09:42 | Pulmonology Progress Note ---
Date of Service August 04, 2022 Assessment & Plan (1) Recurrent pneumothorax after chest tube removed: (2) Chest pain: (3) Abnormal CT scan, chest: (4) Subcutaneous emphysema: Plan Patient with recurrent pneumothorax which was initially spontaneous last week. The Thora vent that he previously had was placed intraparenchymally. I suspect the infiltrate seen on the left is likely pulmonary contusion and hemorrhage from the previously placed Thora vent. Small bore chest tube placed 08/02/2022. Subcu air is resolving. He failed waterseal trials yesterday. Placed back on waterseal today and will repeat chest x-ray at noon. CT chest from 08/02/2022 reviewed with evidence of pulmonary contusion, atelectasis and possible pneumonia. Currently on Unasyn. Would recommend a 5- day course of antibiotics. Can transition to p.o. Augmentin. Toradol as needed for pain. Patient may ultimately require VATS for definitive management of the spontaneous pneumothorax. Thank you for allowing us to participate in the care of the patient. Please call questions. We will continue to follow. Admission and Anticipated Discharge Date Admission Date: August 02, 2022 Subjective Pain is much better controlled today. Less short of breath. Appears much more comfortable. Girlfriend at bedside. Review of Systems Review of Systems: All systems reviewed & are unremarkable except as noted in HPI & below Physical Exam Physical Exam: Constitutional: 26-year-old male appears comfortable. Eyes: Pupils are equal round and reactive to light. Conjunctivae are normal. Anicteric sclera. Ears nose, mouth and throat: Mallampati class 1. Normal posterior oropharynx. Uvula is midline. Neck: Trachea is midline. Visual inspection is normal. Respiratory: Clear bilaterally. Cardiovascular: Regular rate and rhythm. No murmurs. No edema. Gastrointestinal: Normal bowel sounds, soft, nontender and nondistended. No hepatosplenomegaly noted. Musculoskeletal: Able to move all extremities. Much less tenderness in the left chest wall than yesterday. Skin: No rashes, warm dry and intact. Neurologic: No obvious focal neurological deficits seen. Psychiatric: Alert and oriented x3 with a euthymic affect. Results & Data Results & Data ([facility]) Vital Signs (Past 12 Hours) Vital Signs Temp Pulse Pulse Pulse Resp BP Pulse Ox 08/04/22 07:20 87 08/04/22 07:20 08/04/22 07:19 37 C 71 19 123/88 96 08/03/22 23:30 98 H 08/04/22 03:11 36.6 C 85 18 130/91 95 08/03/22 22:43 36.8 C 86 16 130/86 97 O2 Del Method 08/04/22 07:20 08/04/22 07:20 Room Air 08/04/22 07:19 Room Air 08/03/22 23:30 08/04/22 03:11 Room Air 08/03/22 22:43 Room Air PG Care Time/CCT Total # of Minutes Spent Total Time Spent with Patient: Total time spent is greater than 50% in coordination of care (as documented) at patient's floor/unit and/or counseling patient: Coding Level of Care Code 64577 SUB INP/OBS CARE 2/35MIN Diagnoses Recurrent pneumothorax after chest tube removed J95.811 Chest pain R07.[address] scan, chest R93.89 Subcutaneous emphysema T79.7XXA
[2022-08-04] MEDS: POLYETHYLENE (MIRALAX) 17 GM PACK PO SCH (10:09)
--- NOTE | 2022-08-04 11:38 | Hospitalist Progress Note ---
Date of Service August 04, 2022 Assessment & Plan (1) Recurrent pneumothorax after chest tube removed: Plan: Diagnosed earlier with spontaneous pneumothorax, which recurred after removal of chest tube Appreciate pulmonology management with pneumothorax catheter inserted in the ER 08/02/2022 Chest x ray shows some persistent small pneumothorax, chest tube in situ may need VATS procedure Pain control adequate continue Serial chest x rays (2) LLL pneumonia: Plan: Evidence of lobar PNA on x ray Initially on Unasyn, transitioned to PO Augmentin cultures pending (3) Constipation: Plan: Now bowel movement in a few days continue miralax and dlucolax Plan VTE prophylaxis - low risk Diet - regular cont hospitalization Admission and Anticipated Discharge Date Admission Date: August 02, 2022 Subjective patient seen and examind, family by the bedside, he says pain is under good control, although has not had a bowel movement Review of Systems Review of Systems: All systems reviewed are negative, apart from the ones contained in the history. Physical Exam Physical Exam: The patient is awake, alert and oriented 3, well developed and well nourished, normocephalic and atraumatic, lying in bed and in no acute distress. HEENT--PERRL, EOMI, mucous membranes and oropharynx mildly dry Neck--supple. No JVD. No bruits. Thyroid normal, trachea midline, no adenopathy. Heart--normal S1 and S2. No murmurs, rubs or gallops. Lungs--reduced air entry on auscultation, chest tube in situ Abdomen--normal bowel sounds and soft. Mild epigastric and left sided abdominal pain Extremities--no cyanosis or clubbing. No edema. Dermatologic--normal skin turgor, normal color, no abnormal lymph nodes, no rash. Neurologic--cranial nerves II through XII grossly intact. Rheumatologic--normal range of motion. Psychiatric--normal affect. Results & Data Results & Data ([facility]) Vital Signs (Past 12 Hours) Vital Signs Temp Pulse Pulse Pulse Resp BP Pulse Ox 08/04/22 11:00 98.2 F 97 H 20 135/106 H 97 08/04/22 07:20 87 08/04/22 07:20 08/04/22 07:19 98.6 F 71 19 123/88 96 08/04/22 03:11 97.9 F 85 18 130/91 95 O2 Del Method 08/04/22 11:00 Room Air 08/04/22 07:20 08/04/22 07:20 Room Air 08/04/22 07:19 Room Air 08/04/22 03:11 Room Air PG Care Time/CCT Total # of Minutes Spent Total Time Spent with Patient: Total time spent is greater than 50% in coordination of care (as documented) at patient's floor/unit and/or counseling patient: Coding Level of Care Code 80063 SUB INP/OBS CARE 2/35MIN Diagnoses Recurrent pneumothorax after chest tube removed J95.811 LLL pneumonia J18.9 Constipation K59.00 Time Spent (min) 35
--- NOTE | 2022-08-04 14:26 | XRay Report ---
XR chest 1V portable CLINICAL HISTORY: clamping chest tube TECHNIQUE: Single frontal radiograph of the chest was obtained. Comparison: Comparison is made to chest radiograph 08/04/2022 FINDINGS: Left chest tube is unchanged. The cardiomediastinal silhouette is normal. The lungs are clear. No otoniel dence of pleural effusion or pneumothorax. IMPRESSION: Stable position of left chest tube with no evidence of pneumothorax. ACT 112: Negative or not required by law. Electronically signed by: Thanh Driver M.D. 08/04/2022 2:24 PM
--- NOTE | 2022-08-04 14:28 | Communication Note ---
Date of Service: August 04, 2022 Latest chest x-ray status post clamping trial appears to be inflated. No recurrence of pneumothorax. Pneumothorax catheter was capped with a Luer-Marga ca p and is currently clamped. Patient encouraged to ambulate. He is informed to tell the nurse if he has any increasing shortness of breath or tightness in his chest in which case he will need to be hooked back up to the Amanda drain and started on suction at -20 cm of water. We will repeat a chest x-ray tomorrow morning. If chest x-ray is without recurrence of pneumothorax, then will DC the drain and the patient can be discharged home.
[2022-08-04] MEDS: AMOXICILLIN/CLAVULANATE 500 MG TAB PO SCH (16:57)
--- NOTE | 2022-08-04 17:52 | XRay Report ---
XR chest 1V portable CLINICAL HISTORY: Ptx TECHNIQUE: Single frontal radiograph of the chest was obtained. Comparison: Comparison is made to chest radiograph 08/03/2022 FINDINGS: Stable appearance of left chest tube. The cardiomediastinal silhouette is normal. Atelectasis is in t he left lung base. No evidence of pleural effusion or pneumothorax. IMPRESSION: No evidence of pneumothorax. Stable left chest tube. ACT 112: Negative or not required by law. Electronically signed by: Thanh Driver M.D. 08/04/2022 5:50 PM
--- NOTE | 2022-08-04 18:45 | XRay Report ---
XR chest 1V portable CLINICAL HISTORY: waterseal TECHNIQUE: Single frontal radiograph of the chest was obtained. Comparison: Comparison is made to chest radiograph 08/04/2022 FINDINGS: Left chest tube is seen. The cardiomediastinal silhouette is normal. The lungs are clear. No evidence of pleural effusion or pneumothorax. IMPRESSION: Left chest tube is seen without evidence of pneumothorax. ACT 112: Negative or not required by law. Electronically signed by: Thanh Driver M.D. 08/04/2022 6:44 PM
[2022-08-05] MEDS ORDERED: AMOXICILLIN/CLAVULANATE 500 MG TAB PO SCH
[2022-08-05] MEDS: POLYETHYLENE (MIRALAX) 17 GM PACK PO SCH (07:18)
[2022-08-05] MEDS: DOCUSATE SODIUM/SENNA 50/8.6MG TAB PO SCH (07:18)
[2022-08-05] MEDS: AMOXICILLIN/CLAVULANATE 500 MG TAB PO SCH (07:18)
[2022-08-05 07:32] LABS: Hemoglobin 14.5 g/dl (14.0-18.0); Mean Corpuscular Hemoglobin 27.7 pg (25.0-34.0); Mean Corpuscular Hgb Conc 34.5 g/dL (32.0-36.0); Mean Corpuscular Volume 80.3 fL (80.0-100.0); Mean Platelet Volume 13.3 fL (9.4-12.4); Platelet Count 203 K/uL (130-400); RDW Coefficient of Variation 12.3 % (11.5-14.5); RDW Standard Deviation 35.4 fL (36.4-46.3); Red Blood Count 5.23 M/uL (4.70-6.10); White Blood Count 7.59 K/ul (4.8-10.8)
[2022-08-05 08:23] LABS: BUN Creatinine Ratio 12.9 (10-20); Calcium 9.7 mg/dl (8.5-10.1); Creatinine Clr Calc Pharmacy 101.8 ml/min; Est GFR (African American) 120.1 ml/min; Est GFR (Non-African American) 103.6 ml/min; Potassium 4.1 mmol/L (3.5-5.1)
--- NOTE | 2022-08-05 09:07 | XRay Report ---
SINGLE VIEW CHEST CLINICAL HISTORY: Pneumothorax. Clamped chest tube. FINDINGS: An AP, portable, upright chest radiograph is compared to study dated 08/04/2022 and correlat ed with chest CT dated 08/02/2022. The cardiomediastinal silhouette is unremarkable. A left-sided chest tube is unchanged in position. No residual pneumothorax is clearly identified. Airspace opacities in the left midlung are similar to previous. No large pleural effusion is identified. No right-sided pn eumothorax is seen. The bony thorax is grossly intact. IMPRESSION: 1. A left-sided chest tube is unchanged in position. No residual left-sided pneumothorax is clearly s een. 2. Airspace opacities in the left midlung are unchanged. ACT 112: Negative or not required by law. Electronically signed by: Alexandre Ko M.D. 08/05/2022 9:06 AM
--- NOTE | 2022-08-05 09:56 | Procedure Note ---
Procedure Note Date of Service August 05, 2022 Note Dressing taken down from over the left apical pneumothorax catheter. Sutures removed. Catheter removed upon exhalation maneuver by the patient. No complications seen. No bleeding seen. Occlusive dressing placed over the site. Patient instructed to keep dressing on for the next 24 hours. He can then remove the dressing and place a Band-Aid with some bacitracin if there is any evidence of drainage. Coding CPT Codes Pulmonary/Thoracic - Pulmonary and Thoracic: 18980 Remove lung catheter ([id number]) [facility] [place] Procedure Codes (Charges) Pulmonary/Thoracic Procedure 1: Pulmonary and Thoracic: 95980 Remove lung catheter
--- NOTE | 2022-08-05 10:00 | Pulmonology Progress Note ---
Date of Service August 05, 2022 Assessment & Plan (1) Recurrent pneumothorax after chest tube removed: (2) Chest pain: (3) Abnormal CT scan, chest: (4) Subcutaneous emphysema: (5) Mild intermittent asthma: (6) Allergic rhinitis: Plan Patient with recurrent pneumothorax which was initially spontaneous last week. The Thora vent that he previously had was placed intraparenchymally. I suspect the infiltrate seen on the left is likely pulmonary contusion and hemorrhage from the previously placed Thora vent. Small bore chest tube placed 08/02/2022. Subcu air is resolving. Patient did well with prolonged clamping trial and chest tube was removed this morning. He was informed to avoid heavy lifting for the next 2 weeks and anything over 5 pounds. Avoid overly strenuous activity for the next 2 weeks. Avoid changes in barometric pressure for the next 4 to 6 weeks including flying, scuba diving or snorkeling. Patient possibly with an element of asthma and allergic rhinitis. Please discharge him home with an albuterol inhaler. Please also send him home with Flonase and saline rinses. Will need chest x-ray in [address] chest from 08/02/2022 reviewed with evidence of pulmonary contusion, atelectasis and possible pneumonia. Currently on Unasyn. Completed 5-day total course of antibiotics. Toradol as needed for pain. Patient may ultimately require VATS for definitive management of the spontaneous pneumothorax if recurrence. Thank you for allowing us to participate in the care of the patient. Patient stable for discharge. Admission and Anticipated Discharge Date Admission Date: August 02, 2022 Subjective Patient appears comfortable. No issues overnight. No shortness of breath. Mild tenderness over the insertion site of the catheter. Review of Systems Review of Systems: All systems reviewed & are unremarkable except as noted in HPI & below Physical Exam Physical Exam: Constitutional: 26-year-old male appears comfortable. Eyes: Pupils are equal round and reactive to light. Conjunctivae are normal. Anicteric sclera. Ears nose, mouth and throat: Mallampati class 1. Normal posterior oropharynx. Uvula is midline. Neck: Trachea is midline. Visual inspection is normal. Respiratory: Clear bilaterally. Cardiovascular: Regular rate and rhythm. No murmurs. No edema. Gastrointestinal: Normal bowel sounds, soft, nontender and nondistended. No hepatosplenomegaly noted. Musculoskeletal: Able to move all extremities. Much less tenderness in the left chest wall than yesterday. Skin: No rashes, warm dry and intact. Neurologic: No obvious focal neurological deficits seen. Psychiatric: Alert and oriented x3 with a euthymic affect. Results & Data Results & Data ([facility]) Vital Signs (Past 12 Hours) Vital Signs Temp Pulse Pulse Resp BP Pulse Ox O2 Del Method 08/05/22 07:15 78 08/05/22 07:15 Room Air 08/05/22 07:19 36.7 C 71 18 117/78 96 Room Air 08/04/22 23:00 85 08/05/22 03:24 36.4 C L 68 18 110/72 96 Room Air 08/04/22 22:54 36.6 C 71 18 100/70 96 Room Air PG Care Time/CCT Total # of Minutes Spent Total Time Spent with Patient: Total time spent is greater than 50% in coordination of care (as documented) at patient's floor/unit and/or counseling patient: Coding Level of Care Code 13240 SUB INP/OBS CARE 2/35MIN Diagnoses Recurrent pneumothorax after chest tube removed J95.811 Chest pain R07.[address] scan, chest R93.89 Subcutaneous emphysema T79.7XXA Mild intermittent asthma J45.20 Allergic rhinitis J30.9
--- NOTE | 2022-08-05 12:58 | Discharge Summary ---
Date of Service August 05, 2022 Admission HPI Per Admitting Provider Maria Fernanda Fontana is a 26-year-old male who presents to the ER due to shortness of breath. He was recently diagnosed with spontaneous pneumothorax and admitted to [facility] on July 29. He reports recurrent chest pain and shortness of breath the following day. Severity 02/03 today therefore he went to [facility] and obtained a chest x-ray and he was advised to go back to the emergency room due to recurrent pneumothorax. Pneumothorax catheter already placed by pulmonology when seen in the ER. He reports current pain 08/03. Very tired and easily falling back to sleep. He was referred to medicine for admission and ongoing management of pneumothorax. Principal Diagnosis pneumothorax Discharge Exam The patient is awake, alert and oriented 3, well developed and well nourished, normocephalic and atraumatic, lying in bed and in no acute distress. HEENT--PERRL, EOMI, mucous membranes and oropharynx mildly dry Neck--supple. No JVD. No bruits. Thyroid normal, trachea midline, no adenopathy. Heart--normal S1 and S2. No murmurs, rubs or gallops. Lungs--reduced air entry on auscultation, Abdomen--normal bowel sounds and soft. Mild epigastric and left sided abdominal pain Extremities--no cyanosis or clubbing. No edema. Dermatologic--normal skin turgor, normal color, no abnormal lymph nodes, no rash. Neurologic--cranial nerves II through XII grossly intact. Rheumatologic--normal range of motion. Psychiatric--normal affect. Discharge Data Allergies Allergy/AdvReac Type Severity Reaction Status Date / Time No Known Allergies Allergy Verified 07/28/22 23:17 Consultations 08/02/22 12:24 Consult Pulmonology Stat 08/02/22 13:12 ED Decision to Admit Stat Ordered Studies 08/02/22 13:46 CT chest diagnostic wo con Stat Hospital Course (1) Recurrent pneumothorax after chest tube removed: Diagnosed earlier with spontaneous pneumothorax, which recurred after removal of chest tube Appreciate pulmonology management with pneumothorax catheter inserted in the ER 08/02/2022 chest tube has been removed patient will be d/c, and asked to follow up with x ray in 2 weeks and follow up with pulm (2) LLL pneumonia: suspecetd lobar PNA on x ray, however, pulm thinks it may be lung contusion Initially on Unasyn, transitioned to PO Augmentin (3) Constipation: Now bowel movement in a few days continue miralax and dlucolax Plan VTE prophylaxis - low risk Diet - regular cont hospitalization Total Time Total Time Spent Total Time Spent (In Minutes): 35 Discharge Plan Discharge Items Patient Disposition: Home - Self-Care Reason For Visit: PNEUMOTHORAX Discharge Diagnosis: Pneumothorax Activity: Per Instructions section Lifting: Gradually increase as tolerated Non-emergency contact: Primary Care Provider and [employer] Call non-emergency contact if: you have any medication questions and your symptoms worsen Follow-up/Referrals: Chalo Montoya MD [Physician] - [facility] [Primary Care Provider] - Diet: Regular Addtl Attending Provider Instructions: Please remove the wound dressing after 48 hours Avoid strenuous exercise, heavy weight, scuba diving Please make appointment to follow up with Pulmonology Please obtain a chest x ray in 2 weeks in readiness for your follow up visit Pending Studies at Discharge: No Stand-Alone Forms: My R17, Smoking Cessation Medications and DC Order Prescriptions: New albuterol sulfate 90 mcg/actuation HFA aerosol inhaler 2 inh inhalation Q8H PRN (Reason: shortness of breath or wheezing) Qty: 6.7 0RF amoxicillin-pot clavulanate [Augmentin] 500-125 mg tablet 1 tab PO BID 3 Days Qty: 6 0RF fluticasone propionate [Flonase Allergy Relief] 50 mcg/actuation spray,suspension 1 spray intranasal DAILY PRN (Reason: allergy symptoms) Qty: 16 0RF Rx Instructions: administer into each nostril Saline Nasal 0.65 % aerosol,spray 1 spray intranasal BID PRN (Reason: dry nasal passages) Qty: 44 0RF Continued rosuvastatin 10 mg tablet 10 mg PO DAILY oxycodone 5 mg tablet 5 mg PO TID PRN (Reason: pain) Qty: 5 0RF Discharge Orders: Discharge Order (Routine); Ordered 08/05/22 Ordered By: Luiz Brink Admission Data Admit Date/Time: 08/02/22 13:22 Attending Provider: Luiz Brink Admit Provider: Everardo Thomas Primary Care Provider: [facility] Other Providers: Chalo Montoya ; Everardo Thomas Other Interventions: Discharge Summary Assessment (RN) Last Done: 08/05/22 10:50 Coding Level of Care Code 67492 INP/OBS DISCH >30 MIN Diagnoses Recurrent pneumothorax after chest tube removed J95.811 LLL pneumonia J18.9 Constipation K59.00 Time Spent (min) 35
== END 2022-08-05 12:25 | disposition home or self-care (01) | DRG 199 ==
LOC: ED 11:46 → SUATTDRO 13:22 → 2S 13:22